=== PATIENT | female | born 1965 | race Caucasian/White ===

== ENCOUNTER 2018-10-14 11:05 | Emergency (ER) | payer MEDICARE, SELFPAY ==
[2018-10-14 11:05] VITALS: BP 105/82; PULSE 84; RESP 20; TEMP 36.8; O2SAT 94
--- NOTE | 2018-10-14 11:27 | W.ED.GENAD ---
Discharge Plan Disposition Patient Disposition: HOME Condition: Stable Discharge Details Chief Complaint: Nk/Back Pain Clinical Impression: Lumbar back pain Primary Care Provider: Mayra Bedoya ED Provider: [facility] Home Meds and New Rx's Prescriptions: New dexamethasone [Decadron] 4 mg tablet 10 mg PO ONCE Qty: 5 RF: 0 Continued carisoprodol 350 MG tablet 350 mg PO TID RF: 0 sertraline 100 MG tablet 100 mg PO DAILY RF: 0 losartan-hydrochlorothiazide 1 EACH tablet 1 tab-cap PO BID RF: 0 Narcan 4 MG spray,non-aerosol 4 mg NS ONCE Qty: 1 RF: 0 risperidone [Risperdal] 0.25 MG tablet 0.25 mg PO As directed RF: 0 gabapentin 300 MG capsule 600 mg PO QID Qty: 180 RF: 1 oxycodone 10 MG tablet 1 tab PO Q6H PRN MDD 4 tablets/day 28 Days Qty: 112 RF: 0 alprazolam 0.25 MG tablet 0.25 mg PO BID RF: 0 lamotrigine [Lamictal] 25 MG tablet 50 mg PO DAILY RF: 0 clonazepam 1 MG tablet 1 mg PO PRN PRNRF: 0 Discharge Instructions Additional Instructions: your mri lumbar showed fluid that is expected post operative and your neurosurgeon's office is going to call you for a follow up appointment call your primary care office on Wednesday and discuss having home health services Medical Decision Making 52 yo female with hx of chronic lower back pain requiring multiple surgeries and underwent l3/l4 decompression on 10/[address] Dhaliwal per pt at [facility] who comes in with increased pain since surgery and inability to walk and decreased sensation of the legs. She denies fevers, states she can't lift her legs due to weakness and has subjective loss of soft touch sensation in both legs throughout and in the saddle area. Her wound on her lower back where she had the surgery is healing well without d/c or erythema. Her pain is localized to this area, no abdominal tenderness. I spoke with data migration consultant provider for Dr. Dhaliwal at her request prior to ordering testing and Tiffanie Gimenez advised to start with MRI w and w/o and also give a dose of decadron so will order this. No abdomianl pain so doubt entities such as aaa or diverticulitis pt remains stable, does have postsurgical fluid collection on mri per dr. mendoza, awaiting neurosurgery.She is moving her legs but is weak with standing spoke with Tiffanie Gimenez again for Dr. Dhaliwal and they do not see anything on the mri they are overly concerned about and do not feel she requires any immediate interventions. I will prescribe dexemethasone at their request and also they will reach out to her on Wednesday for f/u appt Differential Diagnosis post op pain, abscess, cauda equina Medical Records Medical records reviewed: Yes I reviewed the patient's medical records. Imaging Data Radiologic Study: Attestation: I personally reviewed and interpreted this imaging study as follows: Imaging: MRI Radiologist's impression: IMPRESSION: Postsurgical fluid collection is seen in the region of the previous surgery and right laminectomy at the L3-4 level. There are no definite findings of an epidural abscess. Lab Data Lab results reviewed: Yes I reviewed the patient's lab results. HPI General Mode of arrival: EMS. Date/Time Provider Initiated Documentation: 10/14/18 11:16. Limitations to Documentation: no limitations. Information obtained by: patient. History of Present Illness 52 year old F presents to the emergency department with the chief complaint of lower back pain, described as severe, with intensity rated at 10. Quality is described as aching, and is localized to the back. Patient reports no radiation. Patient started experiencing this week(s) (1) and it has been constant. Rest improves symptom(s), Movement worsens symptoms . Patient notes no other symptoms.. Patient did receive the following treatments prior to arrival, other (oxycodone) Related Data Home Medications Medication Instructions Recorded Confirmed carisoprodol 350 mg PO TID tab-cap 09/07/16 10/14/18 losartan-hydrochlorothiazide 1 tab-cap PO BID tab-cap 09/07/16 10/14/18 sertraline 100 mg PO DAILY tab-cap 09/07/16 10/14/18 Narcan 4 mg NS ONCE #1 spray 11/03/16 10/14/18 lamotrigine [Lamictal] 50 mg PO DAILY 06/02/17 10/14/18 alprazolam 0.25 mg PO BID 07/21/17 10/14/18 risperidone [Risperdal] 0.25 mg PO As directed 08/24/17 10/14/18 gabapentin 600 mg PO QID #180 tab 10/27/17 10/14/18 oxycodone 1 tab PO Q6H PRN 28 Days #112 tab 10/27/17 10/14/18 MDD 4 tablets/day clonazepam 1 mg PO PRN PRN 11/03/17 10/14/18 dexamethasone [Decadron] 10 mg PO ONCE #5 tab 10/14/18 Previous Rx's Medication Instructions Recorded gabapentin 600 mg PO QID #180 tab 10/27/17 oxycodone 1 tab PO Q6H PRN 28 Days #112 tab 10/27/17 MDD 4 tablets/day dexamethasone [Decadron] 10 mg PO ONCE #5 tab 10/14/18 Allergies Allergy/AdvReac Type Severity Reaction Status Date / Time NSAIDS (Non-Steroidal Allergy DUE TO Unverified 10/14/18 11:09 Anti-Inflamma RENAL FAILURE General Stated Complaint: Orthopedic ADRIAN: 3 Review of Systems Review of Systems All systems reviewed & are unremarkable except as noted in HPI and below Constitutional Denies chills and Denies fever(s) Cardiovascular Denies chest pain and Denies dyspnea Respiratory Denies cough and Denies dyspnea Gastrointestinal Denies abdominal pain, Denies nausea and Denies vomiting Integumentary/Breasts Denies rash PFSH Social History Smoking/Tobacco Use Status: Current every day Alcohol Intake: never Drug use: Rarely Substance use type: does not use Do you feel safe at home: Yes Do you feel safe in your relationship?: Yes Exam Const General: no acute distress Orientation: alert HENMT Head: normal to inspection Ears: external ears normal General nose exam: external nose normal Mouth: moist mucous membranes Eyes General: appearance normal, both eyes and all related structures Neck Neck: normal visual inspection Resp Effort & Inspection: normal respiratory effort and able to speak in complete sentences Cardio Rate: regular rate Skin General skin exam: no rashes or lesions noted Neuro General: alert and oriented x3 Extrem General: normal to inspection Psych Mental Status: mental status grossly normal Course Vital Signs Temperature 36.8 C 10/14/18 11:05 Pulse 84 10/14/18 11:05 Respiratory Rate 20 10/14/18 11:05 Blood Pressure 105/82 10/14/18 11:05 Pulse Oximetry 94 L 10/14/18 11:05 Temperature 36.8 C 10/14/18 11:05 Temperature Source Temporal Artery Scan 10/14/18 11:05 Pulse 84 10/14/18 11:05 Respiratory Rate 20 10/14/18 11:05 Respiratory Effort Non-Labored 10/14/18 11:05 Blood Pressure 105/82 10/14/18 11:05 Pulse Oximetry 94 L 10/14/18 11:05 Pain Level 5 10/14/18 11:11
--- NOTE | 2018-10-14 11:33 | DI.MRI_ITS ---
SYMPTOMS/DIAGNOSIS: LOWER BACK PAIN, L3-L4 DECOMPRESSION LAST WEEK MRI OF THE LUMBAR SPINE: The patient has had recent surgery to the lumbar spine. T1, T2, STIR sagittal and T1 and T2 axial sequences, as well as fat-suppressed T1, pre and post gadolinium T1 axial and sagittal sequences were performed. The patient has had post L3-4 decompression surgery approximately one week ago. There is a right- sided laminectomy defect at this level with fluid seen extending from the skin to the level of the thecal sac. There is no apparent extension into the thecal sac. There is no enhancement to suggest infection. There is mild enhancement in the surrounding subcutaneous fat, which is mild and consistent with postsurgical appearance. A moderate degree of central canal stenosis remains present at this level. The more superior levels are unremarkable. Previous hardware is noted at L5-S1, which appears unchanged. There are prominent facet degenerative changes creating narrowing of the transverse dimension of the central canal at L4-5. This appears stable. Bilateral neural foraminal narrowing is again present at L3-4 and L4-5. This appears unchanged. IMPRESSION: Postsurgical fluid collection is seen in the region of the previous surgery and right laminectomy at the L3-4 level. There are no definite findings of an epidural abscess.
--- NOTE | 2018-10-14 11:35 | ED.GENADUL_ITS ---
Discharge Plan Disposition Patient Disposition: HOME Condition: Stable Discharge Details Chief Complaint: Nk/Back Pain Clinical Impression: Lumbar back pain Primary Care Provider: Mayra Bedoya ED Provider: [facility] Home Meds and New Rx's Prescriptions: New dexamethasone [Decadron] 4 mg tablet 10 mg PO ONCE Qty: 5 RF: 0 Continued carisoprodol 350 MG tablet 350 mg PO TID RF: 0 sertraline 100 MG tablet 100 mg PO DAILY RF: 0 losartan-hydrochlorothiazide 1 EACH tablet 1 tab-cap PO BID RF: 0 Narcan 4 MG spray,non-aerosol 4 mg NS ONCE Qty: 1 RF: 0 risperidone [Risperdal] 0.25 MG tablet 0.25 mg PO As directed RF: 0 gabapentin 300 MG capsule 600 mg PO QID Qty: 180 RF: 1 oxycodone 10 MG tablet 1 tab PO Q6H PRN MDD 4 tablets/day 28 Days Qty: 112 RF: 0 alprazolam 0.25 MG tablet 0.25 mg PO BID RF: 0 lamotrigine [Lamictal] 25 MG tablet 50 mg PO DAILY RF: 0 clonazepam 1 MG tablet 1 mg PO PRN PRNRF: 0 Discharge Instructions Additional Instructions: your mri lumbar showed fluid that is expected post operative and your neurosurgeon's office is going to call you for a follow up appointment call your primary care office on Wednesday and discuss having home health services Medical Decision Making 52 yo female with hx of chronic lower back pain requiring multiple surgeries and underwent l3/l4 decompression on 10/[address] Dhaliwal per pt at [facility] who comes in with increased pain since surgery and inability to walk and decreased sensation of the legs. She denies fevers, states she can't lift her legs due to weakness and has subjective loss of soft touch sensation in both legs throughout and in the saddle area. Her wound on her lower back where she had the surgery is healing well without d/c or erythema. Her pain is localized to this area, no abdominal tenderness. I spoke with personnel administrator provider for Dr. Dhaliwal at her request prior to ordering testing and Tiffanie Gimenez advised to start with MRI w and w/o and also give a dose of decadron so will order this. No abdomianl pain so doubt entities such as aaa or diverticulitis pt remains stable, does have postsurgical fluid collection on mri per dr. mendoza, awaiting neurosurgery.She is moving her legs but is weak with standing spoke with Tiffanie Gimenez again for Dr. Dhaliwal and they do not see anything on the mri they are overly concerned about and do not feel she requires any immediate interventions. I will prescribe dexemethasone at their request and also they will reach out to her on Wednesday for f/u appt Differential Diagnosis post op pain, abscess, cauda equina Medical Records Medical records reviewed: Yes I reviewed the patient's medical records. Imaging Data Radiologic Study: Attestation: I personally reviewed and interpreted this imaging study as follows: Imaging: MRI Radiologist's impression: IMPRESSION: Postsurgical fluid collection is seen in the region of the previous surgery and right laminectomy at the L3-4 level. There are no definite findings of an epidural abscess. Lab Data Lab results reviewed: Yes I reviewed the patient's lab results. HPI General Mode of arrival: EMS . Date/Time Provider Initiated Documentation: 10/14/18 11:16 . Limitations to Documentation: no limitations . Information obtained by: patient . History of Present Illness 52 year old F presents to the emergency department with the chief complaint of lower back pa in, described as severe, with intensity rated at 10. Quality is described as aching, and is localized to the back. Patient reports no radiation. Patient started experiencing this week(s) (1) and it has been constant. Rest improves symptom(s), Movement worsens symptoms . Patient notes no other symptoms.. Patient did receive the following treatments prior to arrival, other (oxycodone) Related Data Home Medications Medication Instructions Recorded Confirmed carisoprodol 350 mg PO TID tab-cap 09/07/16 10/14/18 losartan-hydrochlorothiazide 1 tab-cap PO BID tab-cap 09/07/16 10/14/18 sertraline 100 mg PO DAILY tab-cap 09/07/16 10/14/18 Narcan 4 mg NS ONCE #1 spray 11/03/16 10/14/18 lamotrigine [Lamictal] 50 mg PO DAILY 06/02/17 10/14/18 alprazolam 0.25 mg PO BID 07/21/17 10/14/18 risperidone [Risperdal] 0.25 mg PO As directed 08/24/17 10/14/18 gabapentin 600 mg PO QID #180 tab 10/27/17 10/14/18 oxycodone 1 tab PO Q6H PRN 28 Days #112 tab 10/27/17 10/14/18 MDD 4 tablets/day clonazepam 1 mg PO PRN PRN 11/03/17 10/14/18 dexamethasone [Decadron] 10 mg PO ONCE #5 tab 10/14/18 Previous Rx's Medication Instructions Recorded gabapentin 600 mg PO QID #180 tab 10/27/17 oxycodone 1 tab PO Q6H PRN 28 Days #112 tab 10/27/17 MDD 4 tablets/day dexamethasone [Decadron] 10 mg PO ONCE #5 tab 10/14/18 Allergies Allergy/AdvReac Type Severity Reaction Status Date / Time NSAIDS (Non-Steroidal Allergy DUE TO Unverified 10/14/18 11:09 Anti-Inflamma RENAL FAILURE General Stated Complaint: Orthopedic ADRIAN: 3 Review of Systems Review of Systems All systems reviewed & are unremarkable except as noted in HPI and below Constitutional Denies chills and Denies fever(s) Cardiovascular Denies chest pain and Denies dyspnea Respiratory Denies cough and Denies dyspnea Gastrointestinal Denies abdominal pain, Denies nausea and Denies vomiting Integumentary/Breasts Denies rash PFSH Social History Smoking/Tobacco Use Status: Current every day Alcohol Intake: never Drug use: Rarely Substance use type: does not use Do you feel safe at home: Yes Do you feel safe in your relationship?: Yes Exam Const General: no acute distress Orientation: alert HENMT Head: normal to inspection Ears: external ears normal General nose exam: external nose normal Mouth: moist mucous membranes Eyes General: appearance normal, both eyes and all related structures Neck Neck: normal visual inspection Resp Effort & Inspection: normal respiratory effort and able to speak in complete sentences Cardio Rate: regular rate Skin General skin exam: no rashes or lesions noted Neuro General: alert and oriented x3 Extrem General: normal to inspection Psych Mental Status: mental status grossly normal Course Vital Signs Temperature 36.8 C 10/14/18 11:05 Pulse 84 10/14/18 11:05 Respiratory Rate 20 10/14/18 11:05 Blood Pressure 105/82 10/14/18 11:05 Pulse Oximetry 94 L 10/14/18 11:05 Temperature 36.8 C 10/14/18 11:05 Temperature Source Temporal Artery Scan 10/14/18 11:05 Pulse 84 10/14/18 11:05 Respiratory Rate 20 10/14/18 11:05 Respiratory Effort Non-Labored 10/14/18 11:05 Blood Pressure 105/82 10/14/18 11:05 Pulse Oximetry 94 L 10/14/18 11:05 Pain Level 5 10/14/18 11:11
[2018-10-14] MEDS: Normal Saline 1,000 ML 1000 ML IV (11:39)
[2018-10-14] MEDS: Dexamethasone 10 MG/ML VIAL IVP (11:39)
[2018-10-14] MEDS: HYDROmorphone 2 MG/ML VIAL 1 MG IVP (11:39)
[2018-10-14 11:46] LABS: Abs Immature Grans 0.04 k/cumm (0.0-0.09); Absolute Basophil Count 0.01 k/cumm (0.0-0.2); Absolute Eosinophil Count 0.24 k/cumm (0.0-0.7); Absolute Lymphocyte Count 3.02 k/cumm (1.2-3.4); Absolute Monocyte Count 0.97 k/cumm (0.11-0.7); Absolute Neutrophil Count 9.72 k/cumm (1.2-6.7); Basophils % 0.1; Eosinophils % 1.7; HCT 36.8 % (36.0-46.0); HGB 11.9 g/dL (12.0-15.5); Immature Grans % 0.3; Lymphocytes % 21.6; Mean Corp. HGB Concentration 32.3 g/dL (32.0-36.0); Mean Corpuscular Hemoglobin 28.6 pg (27.0-33.0); Mean Corpuscular Volume 88.5 fL (80-95); Mean Platelet Volume 8.6 fL (8.0-11.0); Monocytes % 6.9; Neutrophils % 69.4; Platelet Count 405 x1000/uL (130-400); RBC 4.16 m/cumm (4.00-5.20); RBC Distribution Width 15.7 % (11.7-14.6)
[2018-10-14 12:16] LABS: ALT 63 U/L (12-78); AST 41 U/L (15-37); Albumin 3.4 g/dL (3.4-5.0); Alkaline Phosphatase 78 U/L (46-116); Anion Gap 10.3 mmol/L (3-11); BUN 19 mg/dL (7-18); Bilirubin, Total 0.2 mg/dL (0.2-1.0); CO2 27.7 mmol/L (21.0-32.0); CREATININE 1.14 mg/dL (0.55-1.02); Calcium 8.8 mg/dL (8.5-10.1); Chloride 96 mmol/L (98-107); Estimated GFR 49.67 (mL/min/1.73m2); Glucose 89 mg/dL (70-100); Potassium 4.3 mmol/L (3.5-5.1); Sodium 134 mmol/L (136-145); Total Protein 6.7 g/dL (6.4-8.2)
--- NOTE | 2018-10-14 14:05 | PDOC.ERCMPRO ---
Care Management Progress Note 10/14-Dr. English requested assistance with discharge plans for Venita. Venita had back surgery last week at . Met with Venita. Venita states that her doctor, Dr. Alton Bedoya, [facility], was supposed to set up home health for her and never did. Venita states she lives with her 68 year old sister who just had surgery as well. Venita states she is alone most of the time. Called home health in [place] and spoke with Kesha. Kesha stated they never received a referral from Dr. Bedoya. Called Dr. Bedoya's office and spoke with Ariadna SAHU. Ariadna states that Dr. Bedoya just saw Venita yesterday and that she has had multiple ED visits in [place]. Ariadna also states that home health was discussed in the past (for which she did not get because she was not homebound) but was not discussed for post surgery. Dr. Bedoya is not in today. Venita states that she will discuss with Dr Bedoya on Wednesday and has asked that we ask patient to call the office Wednesday morning. Above information given to Dr. English who is in agreement.
[2018-10-14] MEDS: Gadoterate meglumine 20 ML VIAL IVP (14:08)
[2018-10-14] MEDS: Ketorolac 15 MG/ML VIAL (15:43)
--- NOTE | 2018-10-14 15:47 | NUR.NOTE ---
patient medicated per MD order. patient aware of waiting for diagnostic results Nursing Note:
[2018-10-14 15:51] VITALS: BP 100/56; PULSE 75; RESP 16; TEMP 36.2; O2SAT 93
[2018-10-14] MEDS: oxyCODONE 10 MG TAB PO (17:06)
[2018-10-14 17:21] VITALS: BP 100/56; PULSE 75; RESP 16; TEMP 36.2; O2SAT 93
== END 2018-10-14 17:20 | disposition home or self-care (01) ==
PROVIDERS: Emergency Provider Emergency Medicine; PCP Family Medicine
DX: M54.5 Low back pain (principal); G89.29 Other chronic pain
CPT/HCPCS: 72158; 80053; 96361; 96374; 96375; 99284; 85025; J1100; J1885

== ENCOUNTER 2019-05-08 12:54 | Emergency (ER) | payer MEDICARE, SELFPAY ==
[2019-05-08] VITALS (13 sets, daily range): BP systolic 116–124; BP diastolic 57–77; PULSE 83–91; RESP 14–22; TEMP 36.2–36.4; O2SAT 90–100
--- NOTE | 2019-05-08 13:24 | ED.GENADUL_ITS ---
Discharge Plan Disposition Patient Disposition: HOME Condition: Fair Discharge Details Chief Complaint: CVA/TIA Clinical Impression: Mcfarland's palsy Primary Care Provider: Mayra Bedoya ED Provider: Kayla Lara Home Meds and New Rx's Prescriptions: New prednisone 20 mg tablet 60 mg PO DAILY Qty: 15 RF: 0 valacyclovir 1 gram tablet 1,000 mg PO TID Qty: 21 RF: 0 No Action carisoprodol 350 MG tablet 350 mg PO TID RF: 0 sertraline 100 MG tablet 100 mg PO DAILY RF: 0 Narcan 4 MG spray,non-aerosol 4 mg NS ONCE Qty: 1 RF: 0 alprazolam 0.25 MG tablet 0.25 mg PO BID RF: 0 lamotrigine [Lamictal] 25 MG tablet 50 mg PO DAILY RF: 0 quetiapine [Seroquel XR] 150 mg Tablet Extended Release 24 Hr 150 mg PO HS RF: 0 gabapentin 300 MG capsule 900 mg PO QID RF: 0 amlodipine 5 mg Tablet 5 mg PO DAILY AM RF: 0 fluoxetine 40 mg Capsule 40 mg PO DAILY AM RF: 0 losartan 100 mg Tablet 100 mg PO DAILY AM RF: 0 pantoprazole 40 mg Tablet,Delayed Release (Dr/Ec) 40 mg PO DAILY AM RF: 0 melatonin 10 mg Tablet 10 mg PO HS RF: 0 quetiapine 100 mg Tablet 100 mg PO HS RF: 0 Discharge Instructions Instructions: Mcfarland Palsy (ED) Additional Instructions: Push fluids by mouth. Use prednisone as prescribed. Use Valtrex as prescribed. Follow-up with your doctor within the next 5 days. Rest activities as tolerated. Use artificial tears and tape eye closed with paper tape in the evening. Use straw when drinking. Return for any worsening, concerns or alarming symptoms sooner. Discharge Data Discharge Date/Time-TO BE ENTERED AT DEPARTURE: 05/08/19 17:18 Medical Decision Making Is a 53-year-old patient who presents with a right-sided facial droop and involving the forehead. Patient did report onset of right ear pain for the last few days prior to onset of symptoms. Facial exam is consistent with Mcfarland's palsy however patient is reporting some difficulty swallowing as well as right upper arm pressure but has no focal weakness on her extremity exam. Patient is not drooling, is able to manage her secretions, has no significant voice change. Patient does lack the ability to smile on the right however her voice is otherwise unchanged. Patient is in no respiratory distress. Denies difficulty breathing. Patient is able to swallow fluids without difficulty. Patient reports onset of symptoms noted this morning when waking. Last known well was midnight. Patient's medical history includes hypertension, migraines, panic attacks, hypertension, chronic pain including neck pain as well as radicular oren nges including a foot drop on the right which is chronic. Patient also reports radiating pain into the right arm which is chronic. Patient's presentation is overall consistent with Mcfarland's palsy however given complaints of difficulty swallowing and right arm pressure I will MR her brain to be sure there is no central neurologic involvement. Patient agrees with plan of care. Labs also ordered including a Lyme. Physical exam reveals inability to range the muscles of the right side of her face including the forehead. No obvious ear canal lesions or skin changes associated. Patient has full strength in all extremities. Coordination intact. Alert and oriented x3. Patient's vital signs reviewed and normal. Patient is in no obvious distress at this time. Accompanied by sister Patient's labs revealed a very minimal leukocytosis no significant changes noted on her chemistries. Urinalysis unremarkable for identified infection. Patient's MR reveals EXAM: MR BRAIN WO CLINICAL HISTORY: facial drop, difficulty swallowing, rt arm pressure TECHNIQUE: Multiplanar multisequence MRI was performed. COMPARISON: No exams were available for comparison FINDINGS: There is mild atrophy. There are scattered high signal lesions in the white matter consistent with changes of small vessel disease. No acute infarct, hemorrhage or mass is seen. The ventricles are normal in size. Vascular flow voids appear intact. The orbits, sinuses, mastoid air cells and pituitary are unremarkable. IMPRESSION: Atrophy and white matter changes likely reflecting chronic microvascular ischemia. Findings appear somewhat disproportionate for the patient's age. No acute abnormality is seen. Case was discussed with Dr. Samira Augustin whom I have asked to also evaluate the patient. She did evaluate the patient and does feel this is most consistent with Mcfarland's palsy and has also reviewed the MRI results. 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 Patient agrees with plan of care, reports her understanding of diagnosis as well as needed for primary care involvement. The patient was stable and requested discharge. Prior to discharge, my usual and customary return precautions were reviewed with the patient - this included follow-up instructions and reasons to return to the Emergency Department if conditions worsens, does not improve as expected, or other new concerns arise. HPI General Date/Time Provider Initiated Documentation: 05/08/19 13:02 . HPI Narrative: Is a 53-year-old patient who presents for right-sided facial droop which she noted this morning. Last known well was at midnight when going to bed. Patient reports yesterday she had mild complaints of right ear pain but otherwise was feeling well. Denied fevers or chills. Patient reports she awoke this morning and started to eat breakfast noting that she was having difficulty because food was falling out of her mouth. Sister noted that she had an obvious right-sided facial droop which was asymmetric and encouraged her to come to the emergency room. Patient reports a very mild headache. Facial droop present on the right including the forehead. Difficulty closing right eye. Patient is also complaining of a pressure in the right upper arm. Patient does report difficulty swallowing. But no obvious voice change or trismus. Patient denies chest pain no difficulty breathing shortness of breath or wheezing. Patient denies obvious weakness of extremities. Patient does have a foot drop on the right which is secondary to spinal issues she has had chronically. Foot drop is unchanged. Patient denies any ill feeling at this time. Patient denies any vision change at this time. Patient denies any new neck or back pain. No other concerns or complaints. Denies any obvious tick bites recently. No history of similar. Related Data Home Medications Medication Instructions Recorded Confirmed carisoprodol 350 mg PO TID tab-cap 09/07/16 05/08/19 sertraline 100 mg PO DAILY tab-cap 09/07/16 05/08/19 Narcan 4 mg NS ONCE #1 spray 11/03/16 10/14/18 lamotrigine [Lamictal] 50 mg PO DAILY 06/02/17 05/08/19 alprazolam 0.25 mg PO BID 07/21/17 05/08/19 amlodipine 5 mg PO DAILY AM 05/08/19 05/08/19 fluoxetine 40 mg PO DAILY AM 05/08/19 05/08/19 gabapentin 900 mg PO QID 05/08/19 05/08/19 losartan 100 mg PO DAILY AM 05/08/19 05/08/19 melatonin 10 mg PO HS 05/08/19 05/08/19 pantoprazole 40 mg PO DAILY AM 05/08/19 05/08/19 prednisone 60 mg PO DAILY #15 tab 05/08/19 quetiapine 100 mg PO HS 05/08/19 05/08/19 quetiapine [Seroquel XR] 150 mg PO HS 05/08/19 05/08/19 valacyclovir 1,000 mg PO TID #21 tab 05/08/19 Previous Rx's Medication Instructions Recorded prednisone 60 mg PO DAILY #15 tab 05/08/19 valacyclovir 1,000 mg PO TID #21 tab 05/08/19 Allergies Allergy/AdvReac Type Severity Reaction Status Date / Time NSAIDS (Non-Steroidal Allergy DUE TO Unverified 05/08/19 13:10 Anti-Inflamma RENAL FAILURE General Stated Complaint: CVA/TIA ADRIAN: 2 Review of Systems All systems reviewed & are unremarkable except as noted in HPI and below Constitutional Constitutional: Denies chills, Denies fatigue, Denies fever(s), Reports headache(s), Denies malaise and Denies weakness Eyes Eyes: Denies loss of vision ENT Ears, Nose, Mouth, and Throat: Denies change in voice, Denies vertigo, Denies dizziness, Reports otalgia, Denies facial pain, Reports headache(s), Denies hoarseness, Reports neck pain (Chronic, unchanged), Denies throat swelling and Denies tongue swelling Cardiovascular Cardiovascular: Denies chest pain, Denies syncope and Denies dyspnea Respiratory Respiratory: Denies chest congestion, Denies cough, Denies pain with cough and Denies dyspnea Gastrointestinal Gastrointestinal: Denies abdominal pain, Denies diarrhea and Denies nausea Genitourinary Genitourinary: Denies dysuria Musculoskeletal Musculoskeletal: Denies abnormal gait, Denies back pain, Denies muscle weakness, Reports neck pain (Chronic, unchanged) and Denies tingling Integumentary/Breasts Skin/Breast: Denies rash Neurologic Neurologic: Denies abnormal gait, Denies behavioral changes, Denies confusion, Denies vertigo, Denies dizziness, Denies syncope, Reports headache(s), Denies lack of coordination, Denies focal weakness, Denies loss of vision, Denies tingling, Denies paresthesias and Denies weakness Psychiatric Psychiatric: Denies behavioral changes and Denies confusion Endocrine Endocrine: Denies fatigue Allergic/Immunologic Allergic/Immunologic: Denies throat swelling and Denies tongue swelling [facility] Medical History Arthritis Cervical pain Chronic pain Depression Foot drop HTN (hypertension) Kidney stones Lumbosacral pain Migraines Panic attacks Tobacco use Vitamin D deficiency Social History Smoking/Tobacco Use Status: Current every day Tobacco Type: cigarettes Alcohol Intake: never Drug use: Rarely Substance use type: marijuana Do you feel safe at home: Yes Do you feel safe in your relationship?: Yes Exam Narrative Exam Narrative: CONST: Healthy appearing patient, in no acute distress. Well hydrated. Alert and alert. HENMT: Head nomocephalic, normal to inspection. Atraumatic. Hearing grossly normal. External ear canal no erythema or swelling. TM normal bilaterally. Nose normal to inspection. No rhinnorhea. Right-sided facial droop. Oral mucosa normal. Tounge normal. Dentition normal. Normal posterior oropharynx. Uvula midline. EYES: Alignment normal. Unable to close eyelids fully on the right. Conjunctiva normal. Sclera normal. PERRL. NECK: Normal visual inspection. FROM. No lymphadenopathy. Trachea midline. No Midline tenderness. CHEST: Normal insepection of the chest. RESP: Normal respiratory effort. Speaking full sentences. No cough. No wheezing. No retractions. Clear to auscaltation. Breath sound equal and present bilaterally. CARDIO: No JVD. Normal PMI. Regular Rate. Regular Rhythm. Normal peripheral pulses. GI: Normal inspection of abdomen. No distension. Soft. Nontender. Bowel sounds present in all 4 quadrants. No rebound. No gaurding. MUSCULOSKELETAL: Normal Gait. FROM of all extremities. Distal neurovascularly intact. Sensation intact distally. SKIN: Normal. Dry. No rashes. NEURO: Alert and awake. Speech clear. Alert and oriented x 3. Speech is clear. Patient unable to fully close right eye, unable to raise brow on the right, unable to smile on right. Normal [id number]-[id number] test. No pronator drift. Normal heel-gallegos test. No Nystagmus. Gait normal. Strength intact in all extremities. Sensation intact in all extremities. PSYCH: Normal affect. Cooperative. Course Vital Signs Vital signs: Vital Signs Temperature 36.2 C L 05/08/19 13:06 Pulse 90 05/08/19 13:06 Respiratory Rate 14 05/08/19 13:06 Blood Pressure 124/57 L 05/08/19 13:06 Pulse Oximetry 100 05/08/19 13:06 Temperature 36.2 C L 05/08/19 13:06 Temperature Source Skin 05/08/19 13:06 Pulse 90 05/08/19 13:06 Respiratory Rate 14 05/08/19 13:06 Blood Pressure 124/57 L 05/08/19 13:06 Blood Pressure Position Sitting 05/08/19 13:06 Pulse Oximetry 100 05/08/19 13:06 Oxygen Delivery Method Room Air 05/08/19 13:06 Oxygen Flow Rate 0 05/08/19 13:06
[2019-05-08 13:55] LABS: Abs Immature Grans 0.03 k/cumm (0.0-0.09); Absolute Basophil Count 0.03 k/cumm (0.0-0.2); Absolute Eosinophil Count 0.38 k/cumm (0.0-0.7); Absolute Lymphocyte Count 2.89 k/cumm (1.2-3.4); Absolute Monocyte Count 0.58 k/cumm (0.11-0.7); Absolute Neutrophil Count 6.95 k/cumm (1.2-6.7); Basophils % 0.3; Eosinophils % 3.5; HCT 40.1 % (36.0-46.0); HGB 12.9 g/dL (12.0-15.5); Immature Grans % 0.3; Lymphocytes % 26.6; Mean Corp. HGB Concentration 32.2 g/dL (32.0-36.0); Mean Corpuscular Hemoglobin 27.4 pg (27.0-33.0); Mean Corpuscular Volume 85.1 fL (80-95); Mean Platelet Volume 8.9 fL (8.0-11.0); Monocytes % 5.3; Platelet Count 393 x1000/uL (130-400); RBC 4.71 m/cumm (4.00-5.20); RBC Distribution Width 14.9 % (11.7-14.6); White Blood Cell Count 10.86 k/cumm (4.4-10.8)
[2019-05-08 14:03] LABS: ALT 24 U/L (14-59); AST 12 U/L (15-37); Albumin 3.7 g/dL (3.4-5.0); Alkaline Phosphatase 69 U/L (46-116); Anion Gap 10.4 mmol/L (3-11); BUN 26 mg/dL (7-18); Bilirubin, Total 0.2 mg/dL (0.2-1.0); CO2 27.6 mmol/L (21.0-32.0); CREATININE 0.93 mg/dL (0.55-1.02); Calcium 9.2 mg/dL (8.5-10.1); Chloride 102 mmol/L (98-107); Glucose 97 mg/dL (74-106); Potassium 3.4 mmol/L (3.5-5.1); Sodium 140 mmol/L (136-145); Total Protein 7.5 g/dL (6.4-8.2)
[2019-05-08] MEDS: Normal Saline 1,000 ML 1000 ML IV (14:05)
[2019-05-08 15:00] LABS: Bilirubin Negative (Negative); Blood Negative (Negative); Clarity Clear (Clear); Glucose Negative (Negative); Ketones Negative (Negative); Leukocyte Esterase Negative (Negative); Nitrite Negative (Negative); Urobilinogen 0.2 EU/dL (Up TO 0.2)
--- NOTE | 2019-05-08 15:42 | DI.MRI_ITS ---
EXAM: MR BRAIN WO CLINICAL HISTORY: facial drop, difficulty swallowing, rt arm pressure TECHNIQUE: Multiplanar multisequence MRI was performed. COMPARISON: No exams were available for comparison FINDINGS: There is mild atrophy. There are scattered high signal lesions in the white matter consistent with c hanges of small vessel disease. No acute infarct, hemorrhage or mass is seen. The ventricles are no rmal in size. Vascular flow voids appear intact. The orbits, sinuses, mastoid air cells and pituita ry are unremarkable. IMPRESSION: Atrophy and white matter changes likely reflecting chronic microvascular ischemia. Findings appear s omewhat disproportionate for the patient's age. No acute abnormality is seen.
[2019-05-09 13:18] LABS: Lyme Ab w Rflx to Lyme Confirm Negative (Negative)
[2019-05-09 21:31] LABS: Anaplasma phagocytophilum Negative (Negative); B. miyamotoi PCR Negative (Negative); Babesia divergens/MO-1 Negative (Negative); Babesia duncani Negative (Negative); Babesia microti Negative (Negative); Ehrlichia chaffeensis Negative (Negative); Ehrlichia ewingii/canis Negative (Negative); Ehrlichia muris eauclairensis Negative (Negative)
== END 2019-05-08 17:18 | disposition home or self-care (01) ==
PROVIDERS: Emergency Provider Physician Assistant; PCP Family Medicine
DX: G51.0 Bell's palsy (principal); R13.10 Dysphagia, unspecified; R47.81 Slurred speech; R53.1 Weakness; I10 Essential (primary) hypertension; H92.01 Otalgia, right ear
CPT/HCPCS: 36415; 80053; 87798; 93005; 96360; 99285; 70551; 81003; 85025; 86618; 93010

== ENCOUNTER 2020-03-10 08:14 | Emergency (ER) | payer MEDICARE, SELFPAY ==
[2020-03-10 08:16] VITALS: BP 121/104; PULSE 74; TEMP 36.5; O2SAT 96
--- NOTE | 2020-03-10 08:30 | DI.RAD_ITS ---
EXAM: XR LUMBAR SPINE COMPLETE CLINICAL HISTORY: Left side radiculopathy, hx of spine surgery. TECHNIQUE: 2D digital imaging was performed. COMPARISON: No exams were available for comparison FINDINGS: There are 5 lumbar type vertebral bodies. Posterior spinal fusion is seen at L5-S1 with a L5 discect wally. The orthopedic hardware appears intact. Moderate degenerative changes are seen in the lumbar s pine particularly at L3-4 and L4-L5. No acute fracture or dislocation. The bones are normally patents examiner alized. IMPRESSION: 1. Stable postsurgical changes in the lower lumbar spine. 2. Degenerative changes in the lumbar spine. 3. No acute abnormality. DATA REPOSITORY: RADIATION DOSE DELIVERED:
--- NOTE | 2020-03-10 08:37 | W.ED.GENAD ---
Discharge Plan Disposition Patient Disposition: HOME Condition: Stable Discharge Details Clinical Impression: UTI (urinary tract infection), Sciatica of left side Primary Care Provider: Mayra Bedoya ED Provider: Renetta Martínez Home Meds and New Rx's Prescriptions: New cephalexin 500 mg tablet 500 mg PO BID 7 Days Qty: 14 RF: 0 oxycodone-acetaminophen [Percocet] 5-325 mg tablet 1 tab PO TID PRN (Reason: pain) Qty: 6 RF: 0 Continued carisoprodol 350 MG tablet 350 mg PO TID RF: 0 Narcan 4 MG spray,non-aerosol 4 mg NS ONCE Qty: 1 RF: 0 alprazolam 0.25 MG tablet 0.25 mg PO BID RF: 0 hydrochlorothiazide 25 mg tablet 25 mg PO DAILY RF: 0 amitriptyline 100 mg tablet 100 mg PO QHS RF: 0 quetiapine [Seroquel XR] 150 mg Tablet Extended Release 24 Hr 150 mg PO HS RF: 0 gabapentin 300 MG capsule 800 mg PO QID RF: 0 amlodipine 5 mg Tablet 5 mg PO DAILY AM RF: 0 fluoxetine 40 mg Capsule 40 mg PO DAILY AM RF: 0 losartan 100 mg Tablet 100 mg PO DAILY AM RF: 0 pantoprazole 40 mg Tablet,Delayed Release (Dr/Ec) 40 mg PO DAILY AM RF: 0 melatonin 10 mg Tablet 10 mg PO HS RF: 0 quetiapine 100 mg Tablet 100 mg PO HS RF: 0 prednisone 20 mg tablet 60 mg PO DAILY Qty: 15 RF: 0 Discharge Instructions Instructions: Urinary Tract Infection in Women (ED), Sciatica (ED) Additional Instructions: Follow up with primary care provider in 3-5 days. Return to ED sooner if any worsening or concerns. Increase oral fluids. Please take Tylenol with food every 4-6 hours as needed for pain and swelling. Try alternating ice and heat, take medications as prescribed. Referrals: Mayra Bedoya [Primary Care Provider] - Discharge Data Discharge Date/Time-TO BE ENTERED AT DEPARTURE: 03/10/20 09:46 Medical Decision Making 54-year-old female presents to the ED with chief complaint of left lower lumbar pain with radiation down her left leg to her knee. She does have a complex history of back problems including back surgery, she had a lumbar fusion in 1998, laminectomy lumbar surgery also at that time. She reports that the pain and numbness has caused her to have increased frequent falls. Last fall was approximately 5 days ago. She has arthritis, chronic pain, depression foot drop on the right, hypertension. She reports she had a nerve block at [facility] approximately a week ago which made the pain worse in her left side. She denies any saddle anesthesia no loss of bowel or bladder control. She does report some numbness to the bottom of her feet bilaterally. She reports noting some darkening of her urine. She denies any chest pain, abdominal pain, fever or any other associated symptoms. Urinalysis shows trace blood, small leukocytes, 20-50 WBCs, no nitrates culture is pending at this time. Patient was given Valium 2 mg, a and 1 Percocet in the department. Imaging protocol: XR of the lumbosacral spine, 4 or 5 views. COMPARISON: MR L-SPINE^ROUTINE W WO 10/14/2018 1:47 PM FINDINGS: Vertebrae: Postsurgical changes are present. The patient has undergone L5 laminectomy and discectomy with posterior fusion. Pedicle screws and rods and intervertebral disc prostheses are at the L5-S1 level. DJD is present with disc space narrowing sclerosis and osteophyte formation at the L3-L4 and L4-L5 levels.. There is no significant malalignment. No fracture or other acute abnormalities are seen. Soft tissues: Unremarkable. IMPRESSION: 1. Postsurgical changes at L5-S1. 2. DJD. 3. No acute abnormality. Thank you for allowing us to participate in the care of your patient. Dictated and Authenticated by: Abel Gonsales MD 03/10/2020 9:14 AM Eastern Time ([place] & [place]) We will treat patient for UTI, will give Percocet prescription to go instructed to follow-up with PCP, verbalized understanding discuss strict return instructions, verbalized understanding. HPI General Mode of arrival: EMS. Date/Time Provider Initiated Documentation: 03/10/20 08:17. Limitations to Documentation: no limitations. Information obtained by: patient. HPI Narrative: 54-year-old female presents to the ED with chief complaint of left lower lumbar pain with radiation down her left leg to her knee. She does have a complex history of back problems including back surgery, she had a lumbar fusion in 1998, laminectomy lumbar surgery also at that time. She reports that the pain and numbness has caused her to have increased frequent falls. Last fall was approximately 5 days ago. She has arthritis, chronic pain, depression foot drop on the right, hypertension. She reports she had a nerve block at [facility] approximately a week ago which made the pain worse in her left side. She denies any saddle anesthesia no loss of bowel or bladder control. She does report some numbness to the bottom of her feet bilaterally. She reports noting some darkening of her urine. She denies any chest pain, abdominal pain, fever or any other associated symptoms. Related Data Home Medications Medication Instructions Recorded Confirmed carisoprodol 350 mg PO TID tab-cap 09/07/16 03/10/20 Narcan 4 mg NS ONCE #1 spray 11/03/16 10/14/18 alprazolam 0.25 mg PO BID 07/21/17 03/10/20 amlodipine 5 mg PO DAILY AM 05/08/19 03/10/20 fluoxetine 40 mg PO DAILY AM 05/08/19 03/10/20 gabapentin 800 mg PO QID 05/08/19 03/10/20 losartan 100 mg PO DAILY AM 05/08/19 03/10/20 melatonin 10 mg PO HS 05/08/19 03/10/20 pantoprazole 40 mg PO DAILY AM 05/08/19 03/10/20 prednisone 60 mg PO DAILY #15 tab 05/08/19 03/10/20 quetiapine 100 mg PO HS 05/08/19 03/10/20 quetiapine [Seroquel XR] 150 mg PO HS 05/08/19 03/10/20 amitriptyline 100 mg PO QHS 03/10/20 03/10/20 cephalexin 500 mg PO BID 7 Days #14 tab 03/10/20 hydrochlorothiazide 25 mg PO DAILY 03/10/20 03/10/20 oxycodone-acetaminophen [Percocet] 1 tab PO TID PRN #6 tab 03/10/20 Previous Rx's Medication Instructions Recorded prednisone 60 mg PO DAILY #15 tab 05/08/19 cephalexin 500 mg PO BID 7 Days #14 tab 03/10/20 oxycodone-acetaminophen [Percocet] 1 tab PO TID PRN #6 tab 03/10/20 Allergies Allergy/AdvReac Type Severity Reaction Status Date / Time NSAIDS (Non-Steroidal Allergy DUE TO Unverified 03/10/20 08:21 Anti-Inflamma RENAL FAILURE General Stated Complaint: Nk/Back Pain ADRIAN: 3 Review of Systems Narrative: Constitutional: Negative for weight loss, alert and oriented, well groomed, normal body habitus, appears comfortable. Reports frequent falls. HEENT: Denies headaches, blurry vision, nasal discharge, sore throat, trouble swallowing. Chest: Denies chest pain, palpitations, irregular rhythm, hypertension. Respiratory: Denies Shortness of breath, cough, hemoptysis. GI: Denies abdominal pain, nausea, vomiting, diarrhea, constipation. Musculoskeletal: Left lower lumbar paraspinous tenderness with radiation around the left gluteal to left anterior thigh. : Denies dysuria, hematuria, flank pain, rectal bleeding. Neuro: Denies dizziness, blurry vision, syncope, headache or facial numbness. Hematologic: Denies easy bruising, intolerance to heat or cold, hair loss. [facility] Medical History Arthritis Cervical pain Chronic pain Depression Foot drop HTN (hypertension) Kidney stones Lumbosacral pain Migraines Panic attacks Tobacco use Vitamin D deficiency Surgical History ANTERIOR LUMBAR INTERBODY FUSION (~1998) Cervical Procedure (~1998) HX CERVICAL CA HEMILAMINECTOMY LUMBAR SURGERY (~1998) MICRODISCECTOMY (~1996) Oophrectomy, Right Social History Smoking/Tobacco Use Status: Current every day Tobacco Type: cigarettes Alcohol Intake: never Drug use: Rarely Substance use type: marijuana Do you feel safe at home: Yes Do you feel safe in your relationship?: Yes Exam Narrative Exam Narrative: Constitutional: Alert and oriented x3. Appears stated age. Normal body habitus. Head: Normocephalic, no trauma. Eyes: Pupils PERRLA, Red reflex noted, EOM's intact. Eyelids symmetrical without lesions, discharge, or swelling. ENT: Bilateral TM's WNL, External ear normal to inspection, no mastoid TTP, swelling, or erythema, Nasal turbinates WNL, no nasal discharge. Normal dentition, Posterior pharynx WNL, no exudate. Chest: RRR, Normal S1, S2, distal pulses intact. Resp: Lungs clear to auscultation bilaterally, no wheezes, rales, or rhonchi. Musculoskeletal: Unable to assess gait, does have chronic right foot drop, has intact dorsal pedal flexion and extension to the left lower extremity decreased on the right. Skin: No suspicious rashes or lesions. Capillary refill less than 2 sec. Neurologic: Cranial nerves II-XII intact. Alert and oriented x 3. DTR's intact. Hematologic/Lymphatic: No ecchymosis, no lymphadenopathy. Course Vital Signs Vital signs: Vital Signs Temperature 36.5 C 03/10/20 08:16 Pulse 74 03/10/20 08:16 Blood Pressure 121/104 H 03/10/20 08:16 Pulse Oximetry 96 03/10/20 08:16 Temperature 36.5 C 03/10/20 08:16 Temperature Source Temporal Artery Scan 03/10/20 08:16 Pulse 74 03/10/20 08:16 Respiratory Effort Non-Labored 03/10/20 08:28 Blood Pressure 121/104 H 03/10/20 08:16 Blood Pressure Position Sitting 03/10/20 08:16 Pulse Oximetry 96 03/10/20 08:16 Oxygen Delivery Method Room Air 03/10/20 08:16 Oxygen Flow Rate 0 03/10/20 08:16 Pain Level 6 03/10/20 08:16
[2020-03-10] MEDS: diazePAM 2 MG TAB PO (08:46)
[2020-03-10] MEDS: traMADol 50 MG TAB PO (08:47)
[2020-03-10 08:48] LABS: Bilirubin Negative (Negative); Blood Trace-intact (Negative); Clarity Clear (Clear); Glucose Negative (Negative); Ketones Negative (Negative); Leukocyte Esterase Small (Negative); Nitrite Negative (Negative); Urobilinogen 0.2 EU/dL (Up TO 0.2)
[2020-03-10 08:59] LABS: Bacteria Many HPF (Negative); Casts Negative LPF (Negative); Crystals Negative HPF (Negative); Epithelial Cells Rare HPF (Negative); Mucus Negative (Negative); WBC 20-50 HPF (0-5)
[2020-03-10 09:00] LABS: C & S Indicated? Yes
[2020-03-10 09:11] VITALS: BP 114/63; PULSE 72; RESP 20; TEMP 36.6; O2SAT 93
[2020-03-10] MEDS: oxyCODONE 5 mg/Acetaminophen 325 mg TAB 1 TAB PO (09:40)
[2020-03-10] MEDS: Cephalexin 500 MG CAP PO (09:40)
--- NOTE | 2020-03-14 16:03 | DI.VRAD_ITS ---
PROCEDURE INFORMATION: Exam: XR Lumbosacral Spine, 4 or 5 Views Exam date and time: 03/10/2020 8:59 AM Age: 54 years old Clinical indication: Low back pain; Prior surgery; Surgery type: Fusion; Patient HX: Left sided radiculopathy, HX of spine surgery TECHNIQUE: Imaging protocol: XR of the lumbosacral spine, 4 or 5 views. COMPARISON: MR L-SPINE^ROUTINE W WO 10/14/2018 1:47 PM FINDINGS: Vertebrae: Postsurgical changes are present. The patient has undergone L5 laminectomy and discectomy with posterior fusion. Pedicle screws and rods and intervertebral disc prostheses are at the L5-S1 level. DJD is present with disc space narrowing sclerosis and osteophyte formation at the L3-L4 and L4-L5 levels.. There is no significant malalignment. No fracture or other acute abnormalities are seen. Soft tissues: Unremarkable. IMPRESSION: 1. Postsurgical changes at L5-S1. 2. DJD. 3. No acute abnormality. Dictated and Authenticated by: Abel Gonsales MD. Ordering:ALEXANDRA Jackson MD
== END 2020-03-10 09:46 | disposition home or self-care (01) ==
PROVIDERS: Emergency Provider Registered Nurse Emergency; PCP Family Medicine
DX: N39.0 Urinary tract infection, site not specified (principal); B96.20 Unspecified Escherichia coli [E. coli] as the cause of diseases classified elsewhere; M54.32 Sciatica, left side; I10 Essential (primary) hypertension
CPT/HCPCS: 87077; 99283; 72110; 81003; 81015; 87086; 87186

== ENCOUNTER 2020-07-19 16:28 | Emergency (ER) | payer MEDICARE, SELFPAY ==
[2020-07-19 16:30] VITALS: BP 170/112; PULSE 92; RESP 20; TEMP 36.9; O2SAT 95
--- NOTE | 2020-07-19 17:12 | W.ED.GENAD ---
Discharge Plan Disposition Patient Disposition: [facility] Condition: Serious Discharge Details Clinical Impression: Low back pain, Incontinence Primary Care Provider: Mayra Bedoya ED Provider: Adiel Membreno Home Meds and New Rx's Prescriptions: No Action Narcan 4 MG spray,non-aerosol 4 mg NS ONCE Qty: 1 RF: 0 hydrochlorothiazide 25 mg tablet 25 mg PO DAILY RF: 0 amitriptyline 100 mg tablet 100 mg PO QHS RF: 0 carisoprodol 350 mg tablet 350 mg PO TID PRNRF: 0 prednisone 5 mg tablet 15 mg PO DAILY RF: 0 gabapentin 800 mg tablet 800 mg PO QID RF: 0 alprazolam 0.5 mg tablet 0.5 mg PO TID RF: 0 pantoprazole 40 mg tablet,delayed release (DR/EC) 40 mg PO DAILY RF: 0 propranolol 20 mg tablet 20 mg PO DAILY RF: 0 quetiapine [Seroquel XR] 150 mg Tablet Extended Release 24 Hr 150 mg PO HS RF: 0 amlodipine 5 mg Tablet 5 mg PO DAILY AM RF: 0 fluoxetine 40 mg Capsule 40 mg PO DAILY AM RF: 0 losartan 100 mg Tablet 100 mg PO DAILY AM RF: 0 melatonin 10 mg Tablet 10 mg PO HS RF: 0 Discharge Data Discharge Date/Time-TO BE ENTERED AT DEPARTURE: 07/19/20 20:15 Medical Decision Making 1715 -- 54-year-old female with history of multiple spinal surgeries including lumbar fusion 1998, laminectomy, presents to the left lower lumbar pain with radiation down her left leg to her knee with associated paresthesia, frequent falls over the past 2 days and also urinary incontinence over the past few days. Patient is hypertensive and intermittently having spasms of her left leg. Patient has decreased sensation to light touch left inner thigh. Consider cauda equina syndrome. MRI capability not available at this time at [facility]. Call to [facility] [place] transfer center to request transfer. Will obtain CT lspine to assess for fx given fall. -- I spoke with ortho data power consultant at [facility] [place] - he requested Dixon reflex be performed. 1857 -- CT performed. Dilaudid 1mg given and patient reassessed and pain improved. Still having intermittent spasms. Rectal exam performed and able to bear down but resting tone seems weak. Patient notes diminished sensation L>R perineum. Exam performed with female integration software engineer present. -- Discussed results and findings with [facility] [place] [place] orth data power consultant and Dr. Weathers in ED, Dr. Weathers to accept patient in transfer. 2040 -- Transfer delayed as patient considering transfer. --Patient consented to transfer. HPI General Mode of arrival: ambulatory. Date/Time Provider Initiated Documentation: 07/19/20 16:35. Limitations to Documentation: no limitations. Information obtained by: patient. HPI Narrative: 54-year-old female with history of multiple prior back surgeries, chronic back pain, here with worsening pain over the past 2-week, now with paresthesias, weakness with her leg giving out with frequent falls and spasms as well as associated urinary incontinence over the past few days intermittently. Spasms are severe. She has been taking her antispasmodics without relief. No associated fever. No recent trauma. Patient has had 5 fall from standing to the ground in the past 1 week. Related Data Home Medications Medication Instructions Recorded Confirmed Narcan 4 mg NS ONCE #1 spray 11/03/16 07/19/20 amlodipine 5 mg PO DAILY AM 05/08/19 07/19/20 fluoxetine 40 mg PO DAILY AM 05/08/19 07/19/20 losartan 100 mg PO DAILY AM 05/08/19 07/19/20 melatonin 10 mg PO HS 05/08/19 07/19/20 quetiapine [Seroquel XR] 150 mg PO HS 05/08/19 07/19/20 amitriptyline 100 mg PO QHS 03/10/20 07/19/20 hydrochlorothiazide 25 mg PO DAILY 03/10/20 07/19/20 alprazolam 0.5 mg PO TID 07/19/20 07/19/20 carisoprodol 350 mg PO TID PRN 07/19/20 07/19/20 gabapentin 800 mg PO QID 07/19/20 07/19/20 pantoprazole 40 mg PO DAILY 07/19/20 07/19/20 prednisone 15 mg PO DAILY 07/19/20 07/19/20 propranolol 20 mg PO DAILY 07/19/20 07/19/20 Allergies Allergy/AdvReac Type Severity Reaction Status Date / Time NSAIDS (Non-Steroidal Allergy DUE TO Unverified 07/19/20 16:34 Anti-Inflamma RENAL FAILURE General Stated Complaint: Nk/Back Pain ADRIAN: 3 Review of Systems All systems reviewed & are unremarkable except as noted in HPI and below Constitutional Constitutional: Denies fever(s) Musculoskeletal Musculoskeletal: Reports as per HPI and Reports back pain PFSH Medical History Arthritis Cervical pain Chronic pain Depression Foot drop HTN (hypertension) Kidney stones Lumbosacral pain Migraines Panic attacks Tobacco use Vitamin D deficiency Surgical History ANTERIOR LUMBAR INTERBODY FUSION (~1998) Cervical Procedure (~1998) HX CERVICAL CA HEMILAMINECTOMY LUMBAR SURGERY (~1998) MICRODISCECTOMY (~1996) Oophrectomy, Right Social History Smoking/Tobacco Use Status: Current every day Tobacco Type: cigarettes Smoking risk assessment performed?: Yes Alcohol Intake: never Drug use: Rarely Substance use type: marijuana Do you feel safe at home: Yes Do you feel safe in your relationship?: Yes Exam Const General: cooperative Orientation: alert and awake [facility] Head: normocephalic and atraumatic Mouth: moist mucous membranes Eyes Conjunctivae: normal conjunctivae Sclera: normal sclerae Resp Auscultation: clear to auscultation bilaterally, no rales, no rhonchi and no wheezes Cardio Rate: regular rate and not tachycardic Rhythm: regular rhythm GI Palpation: soft, not firm, no guarding, no masses, not rigid and nontender Back/Spine/Pelvis Back: No erythema and No ecchymosis Thoracic/Lumbar Spine: paraspinal tenderness (left), No thoracic spinal tenderness and lumbar spinal tenderness Skin General skin exam: no rashes or lesions noted Neuro General: patient alert, patient awake, patient oriented x3 and tone normal Cognition: normal cognition Speech: speech normal Motor: other (Weakness left lower extremity, patient has to lift her leg onto the stretch) Sensory Exam: other (Some diminished sensation to light touch left inner thigh) Extrem General: no edema Psych Appearance: grossly normal Mental Status: mental status grossly normal Course Vital Signs Vital signs: Vital Signs Temperature 36.9 C 07/19/20 16:30 Pulse 92 H 07/19/20 16:30 Respiratory Rate 20 07/19/20 16:30 Blood Pressure 170/112 H 07/19/20 16:30 Pulse Oximetry 95 07/19/20 16:30 Temperature 36.9 C 07/19/20 16:30 Temperature Source Skin 07/19/20 16:30 Pulse 92 H 07/19/20 16:30 Respiratory Rate 20 07/19/20 16:30 Respiratory Effort Non-Labored 07/19/20 16:34 Blood Pressure 170/112 H 07/19/20 16:30 Blood Pressure Position Sitting 07/19/20 16:30 Pulse Oximetry 95 07/19/20 16:30 Oxygen Delivery Method Room Air 07/19/20 16:30 Oxygen Flow Rate 0 07/19/20 16:30 Pain Level 8 07/19/20 16:30
--- NOTE | 2020-07-19 17:15 | DI.CT_ITS ---
EXAM: CT LUMBAR SPINE WO CLINICAL HISTORY: low back pain, left sciatic, paresthesia. TECHNIQUE: Imaging Protocol: Axial computed tomography images with coronal and sagittal reformatted images were created and reviewed COMPARISON: CR CERV SP.WITH OBL OR FLEX/EXT from 09/17/2016 CR CERV SP.WITH OBL OR FLEX/EXT from 09/17/2016 MR MRI - LUMBAR SPINE W/WO CONT from 11/12/2016 CR,XR XR LUMBAR SPINE COMPLETE from 03/10/2020 MRI October 2016 was reviewed FINDINGS: Bones: There is evidence of previous fusion surgery at L5-S1 level with posterior fusion rods and davian ateral intrapedicular screws at L5 and S1 levels and are also 2 adjacent right of center disc space d evices at L5-S1 level. INDIVIDUAL LEVELS: T12-L1:No disc herniation nor canal stenosis. Facet joints unremarkable. No foraminal stenosis. L1-2: No disc herniation nor canal stenosis. Facet joints unremarkable. No foraminal stenosis. L2-3: No disc herniation nor canal stenosis. Facet joints unremarkable. No significant foraminal s tenosis. L3-4: Relatively preserved disc height but abundant vacuum phenomenon within the disc space noted an d mild retrolisthesis of L3 relative to L4. There is moderate-severe spinal canal stenosis at this l evel due to annular bulging and short AP dimensions the pedicles. There is also significant bilatera l foraminal stenosis at this level. There appears to be a lateral left disc herniation which is late ral to the exiting left neural foramen and indenting the medial aspect of the left psoas muscle. There is also abnormal widening of both facet joints at this level without vacuum phenomenon evident within these facet joints. L4-5: This is 1 level above the fusion. There is advanced narrowing of the right side of this disc space and moderate narrowing of the left side of the disc space. The pedicular screws are immediatel y subjacent to the superior endplate of L4 but do not appear to project into the intervertebral disc space at this level. There has been removal of posterior osseous elements at this level/bilateral la minectomies. Is not possible to truly determine if there is a disc protrusion at this level due to t he artifact from the screws. There is moderate central spinal canal stenosis at this level. There i s mild foraminal stenosis due to a combination of disc height loss plus severe degenerative change in the facet joints at this level. L5-S1: This disc space contains 2 parallel intervertebral disc space devices which are mostly to the right of center. There does appear to be an element of fusion at this level. The intra pedicular s crews appear to be in satisfactory position. There has been removal of posterior osseous elements. Canal dimensions are within normal limits and there does not appear to be foraminal stenosis at this level due to height maintenance of the disc space by the fusion and disc space devices. There is fus ion across the facets at this level. No obvious disc material in the epidural space at this level. No abnormal fluid collection. S1-S2: There do not appear to be significant findings at this level nor foraminal stenosis. No significant findings in the sacral canal. PARASPINAL SOFT TISSUES: Visualized paraspinal tissues appear unremarkable. IMPRESSION: 1. Postsurgical changes-fusion at L5 S1 level as described above. 2. Significant findings at level (1 level above the fusion) as well as at L3-4 level as described abo ve. 3. There is also abnormal widening of the facet joint synovial spaces at L3-4 level which was not xenia dent on the prior MRI study of October 2016 and is not associated with vacuum phenomenon/gas within the joint space is (as is evident within the L3-4 disc space on today's study). Recommend follow-up MRI. Although there may be some artifact I feel that MRI would add significant i nformation here. RADIATION DOSE DELIVERED: 1,559.65mGy.cm Total DLP DATA REPOSITORY: All CT scans at this facility are submitted to the National Radiology Data Registry (NRDR) Dose Index Registry (DIR) with the [employer] (ACR). RADIATION OPTIMIZATION: All CT scans at this facility use at least one of these dose optimization te chniques: automated exposure control; mA and/or kV adjustment per patient size (includes targeted exa ms where dose is matched to clinical indication); or iterative reconstruction.
[2020-07-19] MEDS: Normal Saline Flush 10 ML SYR IVP (17:50)
[2020-07-19] MEDS: HYDROmorphone 2 MG/ML VIAL 1 MG IVP (17:56)
[2020-07-19 18:06] LABS: Abs Immature Grans 0.04 10^3/uL (0.0-0.06); Absolute Basophil Count 0.05 10^3/uL (0.0-0.2); Absolute Eosinophil Count 0.09 10^3/uL (0.0-0.7); Absolute Monocyte Count 0.49 10^3/uL (0.1-0.8); Absolute Neutrophil Count 9.34 10^3/uL (1.2-6.7); Basophils % 0.4; Eosinophils % 0.8; HCT 41.3 % (36.0-46.0); HGB 13.3 g/dL (11.2-15.7); Immature Grans % 0.3; Lymphocytes % 13.9; MCHC 32.2 % (32.0-36.0); MCV 86.9 fL (80-95); MPV 8.7 fL (8.0-11.0); Monocytes % 4.2; Neutrophils % 80.4; Nucleated RBC 0 %; Platelet Count 506 10^3/uL (130-400); RBC 4.75 10^6/uL (3.93-5.22); RDW 14.6 % (11.7-14.6); RDW-SD 47.1 fL; WBC 11.62 10^3/uL (4.4-10.8)
[2020-07-19 18:13] LABS: Absolute Lymphocyte Count 1.62 10^3/uL (1.2-3.4)
[2020-07-19 18:29] LABS: ALT 38 U/L (14-59); AST 16 U/L (15-37); Albumin 3.9 g/dL (3.4-5.0); Alkaline Phosphatase 87 U/L (46-116); BUN 14 mg/dL (7-18); Bilirubin, Total 0.2 mg/dL (0.2-1.0); CREATININE 0.9 mg/dL (0.55-1.02); Calcium 9.8 mg/dL (8.5-10.1); Chloride 105 mmol/L (98-107); Glucose 108 mg/dL (74-106); Potassium 4.3 mmol/L (3.5-5.1); Sodium 143 mmol/L (136-145)
[2020-07-19] MEDS: Lidocaine 5% Patch 1 PATCH (18:50)
[2020-07-19 19:35] VITALS: BP 143/80; PULSE 86; RESP 18; TEMP 36.6; O2SAT 95
--- NOTE | 2020-07-19 19:42 | DI.VRAD_ITS ---
PROCEDURE INFORMATION: Exam: CT Lumbar Spine Without Contrast Exam date and time: 07/19/2020 5:21 PM Age: 54 years old Clinical indication: Low back pain TECHNIQUE: Imaging protocol: Computed tomography images of the lumbar spine without contrast. Radiation optimization: All CT scans at this facility use at least one of these dose optimization techniques: automated exposure control; mA and/or kV adjustment per patient size (includes targeted exams where dose is matched to clinical indication); or iterative reconstruction. COMPARISON: MR L-SPINE^ROUTINE W WO 14/10/2018 13:47 FINDINGS: Vertebrae: Stable postsurgical changes of the lower lumbar spine with bilateral pedicle screws and Dunn rods in place at L5-S1. Disc spacer in place at L5-S1. L1-L2: No disc herniation. No spinal stenosis. No neural foraminal narrowing. L2-L3: No disc herniation. No spinal stenosis. No neural foraminal narrowing. L3-L4: Vacuum disc phenomena. Slight retrolisthesis of L3 on L4. The spinal canal and neural foramina are patent. Facet arthropathy. Inferior right facet defect seen best on the sagittal images series 7, image 56. L4-L5: Advanced degenerative changes. Disc space narrowing. Anterior bridging osteophytes. Facet arthropathy. Bilateral neural foraminal stenosis. L5 laminectomy. Pedicle screws at L5 bilaterally. L5-S1: Pedicle screws at L5 and S1 bilaterally with Dunn rods. L5 laminectomy. Advanced facet arthropathy. The neural foramina and spinal canal are patent. Soft tissues: Unremarkable. IMPRESSION: Postsurgical changes of the lower lumbar spine similar to prior study. Advanced degenerative changes at L3-L4 and L4-L5. Dictated and Authenticated by: Maru Chance MD. Ordering:TIMMY Chun MD
[2020-07-19 20:39] VITALS: BP 147/95; PULSE 85; RESP 20; TEMP 36.6; O2SAT 94
== END 2020-07-19 20:15 | disposition short-term general hospital (02) ==
PROVIDERS: Emergency Provider Student in an Organized Health Care Education/Training Program; PCP Family Medicine
DX: G89.29 Other chronic pain (principal); M54.5 Low back pain; Z98.1 Arthrodesis status; R20.2 Paresthesia of skin; R29.6 Repeated falls; R32 Unspecified urinary incontinence
CPT/HCPCS: 80053; 96374; 99285; 72131; 85025

== ENCOUNTER 2020-09-29 03:51 | Observation (INO) | payer MEDICARE, SELFPAY ==
[2020-09-29] VITALS (20 sets, daily range): BP systolic 112–148; BP diastolic 31–82; PULSE 72–89; RESP 15–27; TEMP 36.2–37.2; O2SAT 92–97
--- NOTE | 2020-09-29 04:00 | DI.RAD_ITS ---
Exam(s) XR CHEST 1V IN DI DEPT EXAM: XR CHEST 1V IN DI DEPT CLINICAL HISTORY: altered mental status TECHNIQUE: 2D digital imaging was performed. COMPARISON: No exams were available for comparison FINDINGS: MEDIASTINUM: Normal. HEART: Mild cardiomegaly. PULMONARY VASCULATURE: Normal. LUNGS: No focal consolidating infiltrates. PLEURAL SPACE: No pleural effusion or pneumothorax. BONE:Within normal limits for the patient's age. Postsurgical changes in the cervical spine. OTHER FINDINGS:Normal. IMPRESSION: No acute pulmonary findings. DATA REPOSITORY: RADIATION DOSE DELIVERED:
--- NOTE | 2020-09-29 04:00 | RT.EKG_ITS ---
APPROVED REPORT Exam: Resting ECG Patient Location: E HR:84 bpm ECG Measurements Heart Rate [address] 175 P -34 QRSd 96 QRS 45 QT 396 T 65 QTc 468 Conclusion Sinus rhythm...normal P axis, V-rate 60- 99 Ventricular premature complex...V complex w/ short R-R interval Otherwise normal ECG I have reviewed and interpreted ECG and agree with software generated interpretation.
--- NOTE | 2020-09-29 04:00 | DI.CT_ITS ---
Exam(s) CT HEAD WO EXAM: CT HEAD WO CLINICAL HISTORY: altered mental status. TECHNIQUE: Imaging Protocol: Axial computed tomography images with coronal and sagittal reformatted images were created and reviewed COMPARISON: MR MR BRAIN WO from 05/08/2019 FINDINGS: The examination is limited due to patient motion artifact. Ventricles and Extra axial spaces: Normal in size and morphology for the patient's age. Hemorrhage: None. Cerebral parenchyma: There are areas of decreased attenuation in the white matter most consistent wit h chronic microvascular ischemic change. No acute territorial infarct. Midline shift: None. Brainstem/Cerebellum: Normal. Calvarium: Normal. Visualized Paranasal sinuses/Mastoids: Clear. Soft Tissues: Unremarkable. IMPRESSION: No acute intracranial process. RADIATION DOSE DELIVERED: 1,031.63mGy.cm Total DLP DATA REPOSITORY: All CT scans at this facility are submitted to the National Radiology Data Registry (NRDR) Dose Index Registry (DIR) with the [employer] (ACR). RADIATION OPTIMIZATION: All CT scans at this facility use at least one of these dose optimization te chniques: automated exposure control; mA and/or kV adjustment per patient size (includes targeted exa ms where dose is matched to clinical indication); or iterative reconstruction.
--- NOTE | 2020-09-29 04:00 | ED.GENADUL_ITS ---
Discharge Plan Disposition Patient Disposition: [facility] INPATIENT Condition: Poor Discharge Details Clinical Impression: Acute alteration in mental status Primary Care Provider: Mayra Bedoya ED Provider: Aiden Olea [place] Meds and New Rx's Prescriptions: No Action Narcan 4 MG spray,non-aerosol 4 mg NS ONCE Qty: 1 RF: 0 hydrochlorothiazide 25 mg tablet 25 mg PO DAILY RF: 0 amitriptyline 100 mg tablet 100 mg PO QHS RF: 0 carisoprodol 350 mg tablet 350 mg PO TID PRNRF: 0 prednisone 5 mg tablet 15 mg PO DAILY RF: 0 gabapentin 800 mg tablet 800 mg PO QID RF: 0 alprazolam 0.5 mg tablet 0.5 mg PO TID RF: 0 pantoprazole 40 mg tablet,delayed release (DR/EC) 40 mg PO DAILY RF: 0 propranolol 20 mg tablet 20 mg PO DAILY RF: 0 quetiapine [Seroquel XR] 150 mg Tablet Extended Release 24 Hr 150 mg PO HS RF: 0 amlodipine 5 mg Tablet 5 mg PO DAILY AM RF: 0 fluoxetine 40 mg Capsule 40 mg PO DAILY AM RF: 0 losartan 100 mg Tablet 100 mg PO DAILY AM RF: 0 melatonin 10 mg Tablet 10 mg PO HS RF: 0 Medical Decision Making Patient presenting with altered mental status with a number of pills and pill bottles found on the floor with recently filled oxycodone bottle was empty. Suspect that this is polysubstance ingestion. Unknown intent though likely was trying to control pain. Patient given 0.4 mg of Narcan and became more aware and easier to understand. Patient stating she needs to use the bathroom. Johnson catheter placed and a liter of urine returned. IV fluids started. Head CT and chest x-ray ordered. Laboratory studies including Tylenol, salicylate, alcohol ordered. Patient initially very restless after the Narcan but was able to follow direction and seem to be more aware. Laboratory studies are unremarkable for the most part. Her white count and platelets are up likely due to her recent surgery. Hemoglobin low at 10.5 but do not have a recent baseline. Tylenol, aspirin, alcohol negative. Drug screen with tricyclic and benzodiazepines. Narcotic negative but oxycodone would not show up on the screen. Head CT negative. Chest x-ray unremarkable. Suspect encephalopathy secondary to multiple medications. Unknown intent and will need to discuss when mental status clears. Case discussed with hospitalist who accepts the patient for admission. Lab Data Lab results reviewed: Yes I reviewed the patient's lab results. Lab results narrative: Elevated white count of 13.76. Anemic with a hemoglobin of 10.5. Chemistries unremarkable. Potassium just slightly low. Liver fun ction normal. Urine negative. Tylenol aspirin and alcohol negative. Drug screen positive for tricyclic and benzodiazepines. HPI General Mode of arrival: EMS . Date/Time Provider Initiated Documentation: 09/29/20 04:00 . Limitations to Documentation: altered mental status . Information obtained by: EMS . HPI Narrative: Patient brought in by ambulance after found on the floor at home by sister with altered mental status. Patient had back surgery recently and was discharged from the hospital 2 days ago. She was found on the floor with pills in pill bottle on the floor. She had a prescription for oxycodone No. 30 that was filled on the day of discharge that is now empty other medications at home include alprazolam, amitriptyline, gabapentin, carisoprodol, antihypertensives. Unclear what she took. Per EMS blood sugar was in the 90s. IV was started. Narcan not given as breathing and O2 saturations were okay. She would respond to loud verbal stimuli and painful stimuli for EMS Related Data Home Medications Medication Instructions Recorded Confirmed Narcan 4 mg NS ONCE #1 spray 11/03/16 07/19/20 amlodipine 5 mg PO DAILY AM 05/08/19 07/19/20 fluoxetine 40 mg PO DAILY AM 05/08/19 07/19/20 losartan 100 mg PO DAILY AM 05/08/19 07/19/20 melatonin 10 mg PO HS 05/08/19 07/19/20 quetiapine [Seroquel XR] 150 mg PO HS 05/08/19 07/19/20 amitriptyline 100 mg PO QHS 03/10/20 07/19/20 hydrochlorothiazide 25 mg PO DAILY 03/10/20 07/19/20 alprazolam 0.5 mg PO TID 07/19/20 07/19/20 carisoprodol 350 mg PO TID PRN 07/19/20 07/19/20 gabapentin 800 mg PO QID 07/19/20 07/19/20 pantoprazole 40 mg PO DAILY 02/19/21 02/19/21 prednisone 15 mg PO DAILY 07/19/20 07/19/20 propranolol 20 mg PO DAILY 07/19/20 07/19/20 Allergies Allergy/AdvReac Type Severity Reaction Status Date / Time NSAIDS (Non-Steroidal Allergy DUE TO Unverified 07/19/20 16:34 Anti-Inflamma RENAL FAILURE General ADRIAN: 3 Review of Systems Unobtainable due to mental status PFSH Medical History Anxiety disorder Arthritis Cervical pain Chronic pain Depression Foot drop HTN (hypertension) Kidney stones Lumbosacral pain Migraines Panic attacks Tobacco use Vitamin D deficiency Surgical History ANTERIOR LUMBAR INTERBODY FUSION (~1998) Cervical Procedure (~1998) HX CERVICAL CA HEMILAMINECTOMY LUMBAR SURGERY (~1998) MICRODISCECTOMY (~1996) Oophrectomy, Right Social History Smoking/Tobacco Use Status: Current every day Tobacco Type: cigarettes Smoking risk assessment performed?: Yes Alcohol Intake: never Drug use: Rarely Substance use type: marijuana Do you feel safe at home: Yes Do you feel safe in your relationship?: Yes Exam Narrative Exam Narrative: Const: Obese female altered and somnolent. HEENT: NC/AT. Normal facial exam. Eyes: Pupils are midsize and somewhat reactive Neck: Supple. Trachea midline. Lungs: Normal respiratory effort. Lungs are clear. Cor: RRR without murmur/gallop. Good radial pulses. GI: Soft. NT/ND. No guarding or rebound. Neuro: Altered, somnolent, does respond to loud verbal and noxious stimuli. Slurred speech. Cranial nerves II - XII appear grossly intact. PRADO x4 equally.. Ext: No C/C/E. Skin: Warm and dry without lacs/abrasions.
[2020-09-29] MEDS: Normal Saline 1,000 ML 125 ML IV ×3 (04:10→21:02)
[2020-09-29] MEDS: Naloxone 0.4 MG/ML VIAL IVP (04:10)
[2020-09-29 04:19] LABS: Abs Immature Grans 0.21 10^3/uL (0.0-0.06); Absolute Lymphocyte Count 3.15 10^3/uL (1.2-3.4); Absolute Monocyte Count 0.89 10^3/uL (0.1-0.8); Basophils % 0.4; Eosinophils % 0.7; HCT 34.4 % (36.0-46.0); HGB 10.5 g/dL (11.2-15.7); Immature Grans % 1.5; Lymphocytes % 22.9; MCH 26.9 pg (27.0-33.0); MCHC 30.5 % (32.0-36.0); MPV 8.7 fL (8.0-11.0); Monocytes % 6.5; Nucleated RBC 0 %; Platelet Count 634 10^3/uL (130-400); RBC 3.91 10^6/uL (3.93-5.22); RDW 15.3 % (11.7-14.6); RDW-SD 49.7 fL; WBC 13.76 10^3/uL (4.4-10.8)
[2020-09-29 04:29] LABS: Absolute Basophil Count 0.06 10^3/uL (0.0-0.2); Absolute Neutrophil Count 9.36 10^3/uL (1.2-6.7)
[2020-09-29 04:32] LABS: *AMPHETAMINES SCREEN URINE Negative (Negative); *BARBITURATES SCREEN URINE Negative (Negative); *BENZODIAZEPINES SCREEN URINE Positive (Negative); Cannabinoids THC Negative (Negative); Cocaine Screen,Urine Negative (Negative); METHADONE URINE SCREEN Negative (Negative); OPIATES URINE SCREEN Negative (Negative); Salicylate 3.3 mg/dL (<2.8)
[2020-09-29 04:35] LABS: ALT 34 U/L (14-59); AST 14 U/L (15-37); Albumin 3.6 g/dL (3.4-5.0); Alkaline Phosphatase 128 U/L (46-116); Anion Gap 12.5 mmol/L (3-11); BUN 16 mg/dL (7-18); Bilirubin, Direct 0.1 mg/dL (0.0-0.2); Bilirubin, Total 0.2 mg/dL (0.2-1.0); CO2 28.5 mmol/L (21.0-32.0); CREATININE 0.9 mg/dL (0.55-1.02); Calcium 9.1 mg/dL (8.5-10.1); Chloride 105 mmol/L (98-107); Glucose 90 mg/dL (74-106); Magnesium 1.8 mg/dL (1.8-2.4); Potassium 3.3 mmol/L (3.5-5.1); Sodium 146 mmol/L (136-145); Total Protein 7.6 g/dL (6.4-8.2)
[2020-09-29 04:43] LABS: Acetaminophen < 2 ug/mL (10-30); ETHANOL BLOOD < 3.0 mg/dL (<3); Tricyclic Antidepressants Positive (Negative)
[2020-09-29 04:46] LABS: Bilirubin Negative (Negative); Blood Negative (Negative); Clarity Clear (Clear); Glucose Negative (Negative); Ketones Negative (Negative); Leukocyte Esterase Negative (Negative); Nitrite Negative (Negative); Urobilinogen 0.2 EU/dL (Up TO 0.2)
--- NOTE | 2020-09-29 05:16 | DI.VRAD_ITS ---
PROCEDURE INFORMATION: Exam: XR Chest Exam date and time: 09/29/2020 5:10 AM Age: 54 years old Clinical indication: Condition or disease; Other: Altered mental status TECHNIQUE: Imaging protocol: XR of the chest. Views: 1 view. COMPARISON: No relevant prior studies available. FINDINGS: Lungs: Mild chronic interstitial prominence. No consolidation. Pleural spaces: No pleural effusion. No pneumothorax. Heart/Mediastinum: Mild cardiomegaly. Bones/joints: Postsurgical changes in the anterior cervical spine IMPRESSION: No focal consolidation Mild interstitial prominence, presumed chronic Mild cardiomegaly Dictated and Authenticated by: Jensen Adams MD. Ordering:ADRIAN Wolfe MD
--- NOTE | 2020-09-29 05:18 | DI.VRAD_ITS ---
PROCEDURE INFORMATION: Exam: CT Head Without Contrast Exam date and time: 09/29/2020 4:08 AM Age: 54 years old Clinical indication: Altered mental status/memory loss TECHNIQUE: Imaging protocol: Computed tomography of the head without contrast. COMPARISON: MR BRAIN WO 05/08/2019 3:08 PM FINDINGS: Mildly limited due to motion artifact Brain: Mild volume loss No hemorrhage. Mild white matter disease. No mass effect. Cerebral ventricles: No ventriculomegaly. Bones/joints: Unremarkable. No acute fracture. Paranasal sinuses: Visualized sinuses are unremarkable. No fluid levels. Mastoid air cells: Visualized mastoid air cells are well aerated. Soft tissues: Unremarkable. IMPRESSION: No acute intracranial abnormality. Dictated and Authenticated by: Jensen Adams MD. Ordering:ADRIAN Wolfe MD
--- NOTE | 2020-09-29 06:03 | HPE_ITS ---
Date of service: 09/29/20 Time of Service: 06:03 Assessment and Plan Assessment and plan (1) Altered mental status associated with intoxication: Start date: 09/29/20 Status: Acute Assessment and plan: This is a 54-year-old lady with recent surgery of the lumbar spine for degenerative disc disease and spondylosis. She was prescribed a larger number of oxycodone than her baseline by history which is vague. She appears to have ingested the entire bottle of 30 tablets of 15 mg oxycodone over 2 days after discharge. She is not in respiratory distress and guarding her airway well with increasing level of consciousness gradually as observed. She did receive a small dose of Narcan in the ED. No further Narcan will be used unless patient has decreased respiratory efforts which is unlikely. She may have some tolerance to chronic narcotics. Urine drug screen showed no un- prescribed medications with oxycodone not screened in MARK. This appears to be an accidental over-treatment of acute pain with chronic pain. Once patient awakens she needs to be evaluated for possible suicidal ideation. She is a full code. (2) Spondylosis of lumbar region without myelopathy or radiculopathy: Status: Chronic Assessment and plan: Recent surgery with clean incision over most of the lumbar spine area without swelling or discharge. Monitor clinically and have physical therapy evaluate the patient when she awakens (3) Anxiety disorder: Status: Chronic Assessment and plan: Continue monitoring as patient awakens holding anxiolytic for now to avoid oversedation and respiratory suppression. There is no indication for reversal agents at this time. Qualifiers: Anxiety disorder type: other mixed anxiety disorder Qualified Code(s): F41.3 - Other mixed anxiety disorders (4) Chronic pain: Status: Chronic Assessment and plan: Patient has multiple diagnoses of chronic pain and is obese and appears deconditioned. Hold sedating medications such as gabapentin and Elavil for now and reevaluate initiation once patient awakens. Qualifiers: Chronic pain type: chronic pain syndrome Qualified Code(s): G89.4 - Chronic pain syndrome (5) HTN (hypertension): Status: Chronic Assessment and plan: Stable presently with hydrochlorothiazide to be held and IV hydration along with potassium supplementation as indicated. Reevaluate reinitiation of medical therapy once patient awakens. If patient remains on hy drochlorothiazide she needs to have electrolytes monitored more closely with potassium replacement. Qualifiers: Hypertension type: essential hypertension Qualified Code(s): I10 - Essential (primary) hypertension History of Present Illness Narrative: This is a 54-year-old female patient who was found on the floor by her sister earlier the morning of admission through the ED. The patient has had recent lumbar surgery for degenerative disc disease and was released from the hospital 2 days prior to presentation. She was prescribed oxycodone 15 mg, number 30 tablets with this bottle being found empty by the patient on the floor the morning of admission. The patient also is on multiple medications with ch ronic pain and chronically being on oxycodone. She is also on Neurontin, Soma and Elavil as well as antihypertensives including hydrochlorothiazide with slight dehydration upon presentation. ED evaluation revealed the patient to be oversedated and short period of awakening with Narcan. She was given low-dose Narcan to avoid invoking withdrawal. She was not hypoglycemic, did have signs of dehydration with increased sodium with decreased potassium with chronic hydrochlorothiazide for blood pressure control. Evaluation in the ED also revealed a normal CT scan of the head and unremarkable chest x-ray. Labs otherwise were unrevealing with urine drug screen negative. Patient was retaining urine and does have a Johnson in place. She was not incontinent of urine or stool. She had no focal neurological vomiting but appeared encephalopathic. There is no history to suggest suicide attempt. Patient does have chronic anxiety and depression. Patient was not able to offer further history. The patient was breathing comfortably and guarding her airway with head elevated at 45 degrees. She was arousable only to painful stimuli when EMS arrived at her home and was responding to verbal stimuli when admitted to [facility]. When asked where the patient was she thought [facility] her [facility] surgery. Patient is a full code. Review of Systems Narrative: 13 point review of systems otherwise unrevealing and stable by history or unobtainable with patient's altered mental status.. [facility] Medical History Anxiety disorder Arthritis Cervical pain Chronic pain Depression Foot drop HTN (hypertension) Kidney stones Lumbosacral pain Migraines Panic attacks Tobacco use Vitamin D deficiency Surgical History ANTERIOR LUMBAR INTERBODY FUSION (~1998) Cervical Procedure (~1998) HX CERVICAL CA HEMILAMINECTOMY LUMBAR SURGERY (~1998) MICRODISCECTOMY (~1996) Oophrectomy, Right Social History Smoking/Tobacco Use Status: Current every day Tobacco Type: cigarettes Smoking risk assessment performed?: Yes Alcohol Intake: never Drug use: Rarely Substance use type: marijuana Do you feel safe at home: Yes Do you feel safe in your relationship?: Yes Meds Allergies and Home Medications Allergies Allergy/AdvReac Type Severity Reaction Status Date / Time NSAIDS (Non-Steroidal Allergy DUE TO Unverified 07/19/20 16:34 Anti-Inflamma RENAL FAILURE Home Medications Medication Instructions Recorded Confirmed Type Narcan 4 mg NS ONCE #1 spray 11/03/16 09/29/20 History amlodipine 5 mg PO DAILY AM 05/08/19 09/29/20 History fluoxetine 40 mg PO DAILY AM 05/08/19 09/29/20 History losartan 100 mg PO DAILY AM 05/08/19 09/29/20 History melatonin 10 mg PO HS 05/08/19 09/29/20 History amitriptyline 100 mg PO QHS 03/10/20 09/29/20 History hydrochlorothiazide 25 mg PO DAILY 03/10/20 09/29/20 History alprazolam 0.5 mg PO TID 07/19/20 09/29/20 History carisoprodol 350 mg PO TID PRN 07/19/20 09/29/20 History gabapentin 800 mg PO TID 07/19/20 09/29/20 History pantoprazole 40 mg PO DAILY 07/19/20 09/29/20 History prednisone 15 mg PO DAILY 07/19/20 09/29/20 History propranolol 20 mg PO TID PRN 07/19/20 09/29/20 History acetaminophen 1,000 mg PO Q6H PRN 09/29/20 09/29/20 History furosemide 20 mg PO QAM PRN 09/29/20 09/29/20 History lamotrigine 100 mg PO QHS 09/29/20 09/29/20 History oxycodone 5 mg PO Q6H PRN 09/29/20 09/29/20 History pyridoxine (vitamin B6) 100 mg PO QHS 09/29/20 09/29/20 History quetiapine 25 mg PO HS 09/29/20 09/29/20 History quetiapine 200 mg PO HS 09/29/20 09/29/20 History ropinirole 1 mg PO TID 09/29/20 09/29/20 History zolpidem 5 mg PO QHS PRN 09/29/20 09/29/20 History Exam Narrative Exam Narrative: General: Patient appears older than stated age, moderate to morbidly obese and obtunded with change in mental status. She is responding to verbal stimuli. She appears in moderate distress when awakened with discomfort over her back though not able to vocalize. She is not oriented to person place or time. HEENT: Normocephalic, eyes with pupils equal and reactive to light symmetrically, extraocular movement intact and sclera anicteric. Oropharynx with dry mucosa and poor dentition having discoloration and missing teeth. Neck: Supple without JVD. Lungs: Poor inspiratory effort but clear to auscultation with no focalizing rales or rhonchi. Normal expiratory phase and no expiratory wheeze. Back: Stooped posture with clean healing incision running over the entirety of the lumbar spine area. No swelling and no drainage. Heart: Regular rate and rhythm with quiet systolic murmur over the precordium. No gallops or rubs. Breast: Exam deferred. Abdomen: Obese contour, soft and nontender to palpation without palpable hepatosplenomegaly. Bowel sounds positive in all quadrants. Genitalia/rectal: Exam deferred. Johnson catheter is in place. Extremities: Moderate nonpitting edema of both lower extremities with fair capillary refill. No cyanosis or clubbing. All joints appear to have decreased range of motion and patient overall looks deconditioned. No focalizing muscle atrophy. Skin: Normal color, warm and dry. Normal turgor. Neuro: Patient is obtunded but has no focalizing findings moving all extremities when aroused. Cranial nerves II through XII appear to be grossly intact. No focal motor deficits or tremor. No clonus. Babinski is absent. Psych: Patient is obtunded but appears to have flattened affect. Mood is undetermined. No obvious abnormal thought processes. Remote and recent memory is not assessable at this time. Results Imaging Imaging Studies: EXAM: CT HEAD WO CLINICAL HISTORY: altered mental status. TECHNIQUE: Imaging Protocol: Axial computed tomography images with coronal and sagittal reformatted images were created and reviewed COMPARISON: MR MR BRAIN WO from 05/08/2019 FINDINGS: The examination is limited due to patient motion artifact. Ventricles and Extra axial spaces: Normal in size and morphology for the patient's age. Hemorrhage: None. Cerebral parenchyma: There are areas of decreased attenuation in the white matter most consistent with chronic microvascular ischemic change. No acute territorial infarct. Midline shift: None. Brainstem/Cerebellum: Normal. Calvarium: Normal. Visualized Paranasal sinuses/Mastoids: Clear. Soft Tissues: Unremarkable. IMPRESSION: No acute intracranial process. EXAM: XR CHEST 1V IN DI DEPT CLINICAL HISTORY: altered mental status TECHNIQUE: 2D digital imaging was performed. COMPARISON: No exams were available for comparison FINDINGS: MEDIASTINUM: Normal. HEART: Mild cardiomegaly. PULMONARY VASCULATURE: Normal. LUNGS: No focal consolidating infiltrates. PLEURAL SPACE: No pleural effusion or pneumothorax. BONE:Within normal limits for the patient's age. Postsurgical changes in the cervical spine. OTHER FINDINGS:Normal. IMPRESSION: No acute pulmonary findings. Labs Result diagrams: 09/29/20 04:00 09/29/20 04:00 Labs: Laboratory Results - last 24 hr 09/29/20 09/29/20 09/29/20 04:00 04:00 04:00 WBC 13.76 H RBC 3.91 L Hgb 10.5 L Hct 34.4 L MCV 88.0 MCH 26.9 L MCHC 30.5 L RDW 15.3 H Plt Count 634 H MPV 8.7 Immature Gran % 1.5 Neutrophils % 68.0 Lymphocytes % 22.9 Monocytes % 6.5 Eosinophils % 0.7 Basophils % 0.4 Nucleated RBC % 0 Absolute Neutrophils 9.36 H Absolute Lymphocytes 3.15 Absolute Monocytes 0.89 H Absolute Eosinophils 0.10 Absolute Basophils 0.06 Sodium 146 H Potassium 3.3 L Chloride 105 Carbon Dioxide 28.5 Anion Gap 12.5 H BUN 16 Creatinine 0.9 Estimated GFR/1.73 m2 >= 60.00 Glucose 90 Calcium 9.1 Magnesium 1.8 Total Bilirubin 0.2 Conjugated Bilirubin 0.1 AST 14 L ALT 34 Alkaline Phosphatase 128 H Total Protein 7.6 Albumin 3.6 Urine Color Urine Clarity Urine pH Ur Specific [place] Urine Protein Urine Ketones Urine Blood Urine Nitrite Urine Bilirubin Urine Urobilinogen Ur Leukocyte Esterase Urine Glucose Salicylates 3.3 Urine Opiates Screen Urine Methadone Screen Acetaminophen < 2 Ur Barbiturates Screen Ur Tricyclics Screen Ur Amphetamines Screen U Benzodiazepines Scrn Urine Cocaine Screen Ur THC Screen Ethyl Alcohol < 3.0 09/29/20 09/29/20 04:00 04:00 WBC RBC Hgb Hct MCV MCH MCHC RDW Plt Count MPV Immature Gran % Neutrophils % Lymphocytes % Monocytes % Eosinophils % Basophils % Nucleated RBC % Absolute Neutrophils Absolute Lymphocytes Absolute Monocytes Absolute Eosinophils Absolute Basophils Sodium Potassium Chloride Carbon Dioxide Anion Gap BUN Creatinine Estimated GFR/1.73 m2 Glucose Calcium Magnesium Total Bilirubin Conjugated Bilirubin AST ALT Alkaline Phosphatase Total Protein Albumin Urine Color Yellow Urine Clarity Clear Urine pH 6.0 Ur Specific [place] 1.020 Urine Protein Negative Urine Ketones Negative Urine Blood Negative Urine Nitrite Negative Urine Bilirubin Negative Urine Urobilinogen 0.2 Ur Leukocyte Esterase Negative Urine Glucose Negative Salicylates Urine Opiates Screen Negative Urine Methadone Screen Negative Acetaminophen Ur Barbiturates Screen Negative Ur Tricyclics Screen Positive A Ur Amphetamines Screen Negative U Benzodiazepines Scrn Positive A Urine Cocaine Screen Negative Ur THC Screen Negative Ethyl Alcohol Last Vital Signs Temp 36.2 C L 09/29/20 03:58 Pulse 82 09/29/20 05:15 Resp 20 09/29/20 05:20 BP 136/76 09/29/20 05:15 Pulse Ox 93 09/29/20 05:20 COVID-19 Screening Have you, or household traveled for leisure in last 14 days?: No Had IN PERSON contact w/suspected or confirmed C-19 person: No
[2020-09-29 06:20] LABS: Source Nasal/Nares
[2020-09-29 08:17] LABS: TSH (W/Ref FT4) 3.27 uIU/mL (0.36-3.74)
[2020-09-29] MEDS: predniSONE 5 MG TAB 15 MG PO (08:54)
[2020-09-29] MEDS: amLODIPine 5 MG TAB PO (08:55)
[2020-09-29] MEDS: Pantoprazole 40 MG TABCR PO (08:55)
[2020-09-29] MEDS: FLUoxetine 20 MG CAP 40 MG PO (08:55)
[2020-09-29] MEDS: Losartan 50 MG TAB 100 MG PO (08:55)
[2020-09-29] MEDS: Propranolol 20 MG TAB PO (08:55)
[2020-09-29] MEDS: Heparin 5,000 UNITS/ML VIAL 5000 UNITS SC ×3 (08:56→23:48)
--- NOTE | 2020-09-29 09:54 | W.PM.PROGNOT ---
Date of Service Date of service: 09/29/20 Time of Service: 09:30 Subjective Subjective Interval history since last seen: Recent back surgery on 09/13/20 at [facility], Dr. Dhaliwal, and she was discharged 09/26/20. She was staying with her sister after surgery. Pain is tolerable at 4/10 right now. Endorses baseline RLE drop foot and numbness. She also reports new LLE tingling since her surgery. She denies saddle anesthesia. She reports that she fell prior to EMS being called last night. Denies suicidal intent or thoughts of self harm. She does not remember taking the pills. Would be interested in rehab stay, says she is having a hard time at home. She feels hungry, she has not eaten yet today. She denies N/V/D. Her bowels have been moving regularly. Exam Narrative Exam Narrative: General: appears stated age, drowsy, oriented, able to answer questions appropriately and engage in conversation. HEENT: normocephalic, atraumatic, PERRL, mucous membranes moist, poor dentition. Neck: supple, no JVD. Cardiovascular: heart has regular rate, nontachycardic, no murmur apprecaited. Respiratory: respirations appear even and unlabored, lung sounds are clear on anterior and lateral exam. GI: large round abdomen, +BS, soft, nontender on palpation, nondistended. Extremities: Drop foot on right, +pedal pulses bilaterally, moves all 4 extremities freely. Back: lower back with healing incision, no erythema or drainage. Objective Last Vital Signs Temp 36.8 C 09/29/20 07:09 Pulse 83 09/29/20 07:09 Resp 20 09/29/20 07:09 BP 119/79 09/29/20 07:09 Pulse Ox 93 09/29/20 07:09 Laboratory Results - last 24 hr 09/29/20 09/29/20 09/29/20 04:00 04:00 04:00 WBC 13.76 H RBC 3.91 L Hgb 10.5 L Hct 34.4 L MCV 88.0 MCH 26.9 L MCHC 30.5 L RDW 15.3 H Plt Count 634 H MPV 8.7 Immature Gran % 1.5 Neutrophils % 68.0 Lymphocytes % 22.9 Monocytes % 6.5 Eosinophils % 0.7 Basophils % 0.4 Nucleated RBC % 0 Absolute Neutrophils 9.36 H Absolute Lymphocytes 3.15 Absolute Monocytes 0.89 H Absolute Eosinophils 0.10 Absolute Basophils 0.06 Sodium 146 H Potassium 3.3 L Chloride 105 Carbon Dioxide 28.5 Anion Gap 12.5 H BUN 16 Creatinine 0.9 Estimated GFR/1.73 m2 >= 60.00 Glucose 90 Calcium 9.1 Magnesium 1.8 Total Bilirubin 0.2 Conjugated Bilirubin 0.1 AST 14 L ALT 34 Alkaline Phosphatase 128 H Total Protein 7.6 Albumin 3.6 TSH Urine Color Urine Clarity Urine pH Ur Specific [place] Urine Protein Urine Ketones Urine Blood Urine Nitrite Urine Bilirubin Urine Urobilinogen Ur Leukocyte Esterase Urine Glucose Salicylates 3.3 Urine Opiates Screen Urine Methadone Screen Acetaminophen < 2 Ur Barbiturates Screen Ur Tricyclics Screen Ur Amphetamines Screen U Benzodiazepines Scrn Urine Cocaine Screen Ur THC Screen Ethyl Alcohol < 3.0 COVID-19 Source 09/29/20 09/29/20 09/29/20 04:00 04:00 04:00 WBC RBC Hgb Hct MCV MCH MCHC RDW Plt Count MPV Immature Gran % Neutrophils % Lymphocytes % Monocytes % Eosinophils % Basophils % Nucleated RBC % Absolute Neutrophils Absolute Lymphocytes Absolute Monocytes Absolute Eosinophils Absolute Basophils Sodium Potassium Chloride Carbon Dioxide Anion Gap BUN Creatinine Estimated GFR/1.73 m2 Glucose Calcium Magnesium Total Bilirubin Conjugated Bilirubin AST ALT Alkaline Phosphatase Total Protein Albumin TSH 3.27 Urine Color Yellow Urine Clarity Clear Urine pH 6.0 Ur Specific [place] 1.020 Urine Protein Negative Urine Ketones Negative Urine Blood Negative Urine Nitrite Negative Urine Bilirubin Negative Urine Urobilinogen 0.2 Ur Leukocyte Esterase Negative Urine Glucose Negative Salicylates Urine Opiates Screen Negative Urine Methadone Screen Negative Acetaminophen Ur Barbiturates Screen Negative Ur Tricyclics Screen Positive A Ur Amphetamines Screen Negative U Benzodiazepines Scrn Positive A Urine Cocaine Screen Negative Ur THC Screen Negative Ethyl Alcohol COVID-19 Source 09/29/20 06:10 WBC RBC Hgb Hct MCV MCH MCHC RDW Plt Count MPV Immature Gran % Neutrophils % Lymphocytes % Monocytes % Eosinophils % Basophils % Nucleated RBC % Absolute Neutrophils Absolute Lymphocytes Absolute Monocytes Absolute Eosinophils Absolute Basophils Sodium Potassium Chloride Carbon Dioxide Anion Gap BUN Creatinine Estimated GFR/1.73 m2 Glucose Calcium Magnesium Total Bilirubin Conjugated Bilirubin AST ALT Alkaline Phosphatase Total Protein Albumin TSH Urine Color Urine Clarity Urine pH Ur Specific [place] Urine Protein Urine Ketones Urine Blood Urine Nitrite Urine Bilirubin Urine Urobilinogen Ur Leukocyte Esterase Urine Glucose Salicylates Urine Opiates Screen Urine Methadone Screen Acetaminophen Ur Barbiturates Screen Ur Tricyclics Screen Ur Amphetamines Screen U Benzodiazepines Scrn Urine Cocaine Screen Ur THC Screen Ethyl Alcohol COVID-19 Source Nasal/nares
[2020-09-29] MEDS: Potassium Chloride 20 MEQ TABCR 40 MEQ PO (10:14)
[2020-09-29 12:17] LABS: COVID-19 PCR Negative (Negative)
--- NOTE | 2020-09-29 12:19 | PDOC.CMIN ---
- If Service Date Differs Date of service: 09/29/20 Time of Service: 13:58 Care Management Initial Assess REASON FOR HOSPITALIZATION:: AMS r/t intoxication and possible medication overdose PAST MEDICAL HISTORY/PAST SURGICAL HISTORY:: Anxiety disorder. Arthritis. Cervical pain. Chronic pain. Depression. Foot drop. HTN (hypertension). Kidney stones. Lumbosacral pain. Migraines. Panic attacks. Tobacco use. Vitamin D deficiency. ANTERIOR LUMBAR INTERBODY FUSION (~1998). Cervical Procedure (~1998). HX CERVICAL CA. HEMILAMINECTOMY. LUMBAR SURGERY (~1998). MICRODISCECTOMY (~1996). Oophrectomy, Right PREVIOUS FUNCTIONAL STATUS/SOCIAL/FAMILY SUPPORTS:: Venita had recent surgery of the lumbar spine for degenerative disc disease and spondylosis. She has multiple diagnosis of chronic pain, is obese and deconditioned. She is currently staying with her sister, Clarissa in [place], [place]. Previously independent at baseline; will await PT consult to determine current baseline of functioning. CURRENT FUNCTIONAL STATUS:: Venita was sleeping soundly when CM attempted to meet with her, she did not wake up when CM called her name, CM will continue to follow. ADVANCE DIRECTIVES:: None on file at [facility]. Has patient been provided with info about the portal/API?: No Did the patient sign up for the portal?: No CODE STATUS:: Full Code INSURANCE COVERAGE / FINANCIAL ISSUES:: [facility] CURRENT HOME/COMMUNITY SERVICES/EQUIPMENT:: FWW, knee brace PRIMARY CARE PHYSICIAN:: Michele Bedoya POTENTIAL DISCHARGE NEEDS:: SNF coordination, PT/OT evaluations. PATIENT/FAMILY EDUCATION NEEDS:: Review of discharge instructions, discuss Ask Me Three. Review of visitor policy. ANTICIPATED BARRIERS TO DISCHARGE:: None identified at this time. TRANSPORTATION:: TBD by disposition. PLAN:: CM called [facility] (P#[phone]) and confirmed dates of admission at their facility; Venita was admitted 09/13/20-09/26/20. Provider at that time was Dr. Dhaliwal of [facility] (P#[phone]). CM called Venita's sister, Clarissa who requested Venita be provided her cell phone as Clarissa and her other sister are anxious to speak with Venita, when she is alert. CM reviewed visitor policy, Venita reported both she and her sister were vaccinated and two weeks past their last shot so would visit between the hours of [id number]. Clarissa reported Venita resided with her prior to surgery and [facility] recommended SNF but were unable to secure a bed, so Venita returned home. Clarissa reports she was able to take small steps with her FWW but mostly laid down with ice and a brace on her leg. Anticipate Venita will discharge to SNF when ready per MD. Transportation to be determined by disposition and mobility needs.
[2020-09-29 12:48] LABS: Anion Gap 10.6 mmol/L (3-11); BUN 14 mg/dL (7-18); CO2 28.4 mmol/L (21.0-32.0); CREATININE 0.9 mg/dL (0.55-1.02); Calcium 8.6 mg/dL (8.5-10.1); Chloride 107 mmol/L (98-107); Glucose 115 mg/dL (74-106); Sodium 146 mmol/L (136-145)
[2020-09-29] MEDS: Acetaminophen 325 MG TAB 650 MG PO ×2 (12:57→19:42)
--- NOTE | 2020-09-29 13:32 | PHACLINREV_ITS ---
Pharmacy Admission Review - Admission Clinical Review (Last Reviewed 09/29/20 @ 06:09 by Giovanni Eid) Altered mental status associated with intoxication (Acute) NSAIDS (Non-Steroidal Anti-Inflamma Allergy (Unverified 07/19/20 16:34) DUE TO RENAL FAILURE Height 5 ft 10 in Weight 150.2 kg - Renal Dosing Renal Dosing: BUN 14 mg/dL (7-18) 09/29/20 12:32 Creatinine 0.9 mg/dL (0.55-1.02) 09/29/20 12:32 Medications needing adjustments: Reviewed (Crcl ~111.5mL/min using adjusted body weight. Current meds okay.) - Anticoagulation Anticoagulation: Hgb 10.5 g/dL (11.2-15.7) L 09/29/20 04:00 Hct 34.4 % (36.0-46.0) L 09/29/20 04:00 Plt Count 634 10^3/uL (130-400) H 09/29/20 04:00 Creatinine 0.9 mg/dL (0.55-1.02) 09/29/20 12:32 DVT Prohphylaxis: Reviewed Medications: Heparin Therapeutic Anticoagulation: N/A - Opiate Usage Evaluate Pain Scale/Pains Meds: N/A - Relevant Labs Sodium 146 mmol/L (136-145) H 09/29/20 12:32 Potassium 4.0 mmol/L (3.5-5.1) D 09/29/20 12:32 Chloride 107 mmol/L (98-107) 09/29/20 12:32 Magnesium 1.8 mg/dL (1.8-2.4) 09/29/20 04:00 Electrolytes, C-Reactive P, ESR: Reviewed - DM Control DM Control: Glucose 115 mg/dL (74-106) H 09/29/20 12:32 Insulin Dosing: N/A - Heart Failure/DE EF%, KATHLEEN's, B-Blockers, Diuretics: N/A - BP Control BP Control: Blood Pressure 119/79 Blood Pressure 112/73 Blood Pressure 136/76 Blood Pressure 136/76 Blood Pressure 148/73 If elevated: N/A - Qtc Review If Elevated: N/A (QTc 468 on admission) - IV to PO Switch IV Medications: Reviewed - Home Meds Home Med List reviewed: Intervened (Med rec completed based off med list from . Multiple TELECOMMUNICATOR depressants. Some meds haven't been picked up from pharmacy in awhile. Will get med list from PCPs office to see how compares/if some of the meds were discontinued before others started. Provider aware.) Relevent Home Meds Not ordered & why?: alprazolam, amitriptyline, carisoprodol, furosemide, gabapentin, HCTZ, lamotrigine, melatonin, narcan, oxycodone, pyridoxine, ropinirole, zolpidem. Most meds not ordered are being held due to altered mental status. - Current meds Current Medication Order Review: Intervened (Adjusted the timing of pantoprazole based on mediation commissioner time policy.) - Comments Comments/Follow Ups: Watch VS, labs, and for med changes. Will contact PCP's office for home med list to compare to that from .
[2020-09-29] MEDS: QUEtiapine 50 MG TAB 150 MG PO (21:02)
[2020-09-29] MEDS: oxyCODONE 5 MG TAB PO (21:07)
[2020-09-30 03:53] VITALS: BP 152/90; PULSE 75; RESP 19; TEMP 36.6; O2SAT 91
[2020-09-30] MEDS: Normal Saline 1,000 ML 125 ML IV (04:32)
[2020-09-30] MEDS: oxyCODONE 5 MG TAB PO ×2 (06:33→10:45)
[2020-09-30 06:48] LABS: Abs Immature Grans 0.05 10^3/uL (0.0-0.06); Absolute Basophil Count 0.02 10^3/uL (0.0-0.2); Absolute Eosinophil Count 0.13 10^3/uL (0.0-0.7); Absolute Lymphocyte Count 3.69 10^3/uL (1.2-3.4); Absolute Neutrophil Count 4.21 10^3/uL (1.2-6.7); Basophils % 0.2; Eosinophils % 1.5; HCT 30.6 % (36.0-46.0); HGB 9.3 g/dL (11.2-15.7); Immature Grans % 0.6; Lymphocytes % 42.9; MCH 26.6 pg (27.0-33.0); MCHC 30.4 % (32.0-36.0); MCV 87.7 fL (80-95); MPV 8.7 fL (8.0-11.0); Monocytes % 5.8; Nucleated RBC 0 %; Platelet Count 503 10^3/uL (130-400); RBC 3.49 10^6/uL (3.93-5.22); RDW 15.3 % (11.7-14.6); RDW-SD 49.1 fL
[2020-09-30 07:04] LABS: ALT 29 U/L (14-59); AST 15 U/L (15-37); Albumin 2.9 g/dL (3.4-5.0); Alkaline Phosphatase 108 U/L (46-116); Anion Gap 9.2 mmol/L (3-11); BUN 14 mg/dL (7-18); Bilirubin, Total 0.2 mg/dL (0.2-1.0); CO2 28.8 mmol/L (21.0-32.0); CREATININE 0.8 mg/dL (0.55-1.02); Calcium 8.7 mg/dL (8.5-10.1); Chloride 111 mmol/L (98-107); Glucose 88 mg/dL (74-106); Sodium 149 mmol/L (136-145); Total Protein 6.8 g/dL (6.4-8.2)
[2020-09-30 07:19] VITALS: BP 153/110; PULSE 78; RESP 18; TEMP 37.3; O2SAT 96
[2020-09-30 07:27] VITALS: BP 160/104
[2020-09-30] MEDS: predniSONE 5 MG TAB 15 MG PO (07:46)
[2020-09-30] MEDS: Propranolol 20 MG TAB PO (07:46)
[2020-09-30] MEDS: Losartan 50 MG TAB 100 MG PO (07:46)
[2020-09-30] MEDS: Normal Saline Flush 10 ML SYR IVP (07:47)
[2020-09-30] MEDS: Acetaminophen 325 MG TAB 650 MG PO (07:47)
[2020-09-30] MEDS: Pantoprazole 40 MG TABCR PO (07:47)
[2020-09-30] MEDS: Heparin 5,000 UNITS/ML VIAL 5000 UNITS SC (07:47)
[2020-09-30] MEDS: amLODIPine 5 MG TAB PO (07:47)
[2020-09-30] MEDS: FLUoxetine 20 MG CAP 40 MG PO (07:47)
--- NOTE | 2020-09-30 08:45 | PT.INIE ---
Date of service: 09/30/20 Time of Service: 08:45 PT Notes Visit Reasons: ALTERED MENTAL STATUS Physical Therapy Inpatient Initial Evaluation Date: 09/30/2020 Referring Doctor: Felecia Vasquez NP PT Orders: PT CONSULT: History recent back surgery Precautions: Fall. Standard. On back precautions. WB precaution for right LE needs to be clarified. Use of R knee immobilizer and R AFO when out of bed needs to be clarified as well. Patient Profile/Admitting Diagnosis: Venita is a 54-year-old female who presented to the ED on 09/29/2020 with altered mental status. 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 PMHX: Medical History Anxiety disorder Arthritis Cervical pain Chronic pain Depression Foot drop HTN (hypertension) Kidney stones Lumbosacral pain Migraines Panic attacks Tobacco use Vitamin D deficiency Surgical History ANTERIOR LUMBAR INTERBODY FUSION (~1998) Cervical Procedure (~1998) HX CERVICAL CA HEMILAMINECTOMY LUMBAR SURGERY (~1998) MICRODISCECTOMY (~1996) Oophrectomy, Right Social History/Home Situation: Moved to [place] 3 to 4 years ago since and came to [place] to live with older sister. Equipment Owned/DME: Front wheeled walker, single-point cane, knee immobilizer, AFO Subjective: Venita indicates that she was told by the nurse to put no weight on the right lower extremity because of a fracture that they saw during her rehabilitation stay at [facility]. She states that she was advised to wear a knee immobilizer and air right ankle-foot orthosis when she transfers and moves. However she states that said devices are both at home. She reports 8 falls in the past year with 1 fall happening after her surgery on 09/13/2020. States that her sister has been a very good support for her. Objective: General Observation: Supine in bed. Surgical incision in low back well-approximated Mental Status: Alert and oriented as to person, place, time, and purpose. Able to pay attention, focus, and respond appropriately. Pain: 12/05/09 in back and right LE with weight bearing ROM: Right Upper Extremity: Shoulder Flexion WFL. Shoulder abduction WFL. Shoulder ER/IR WFL. Elbow flexion WFL. Forearm pronation/supination WFL. Wrist flexion WFL. Opening and closing of hand WFL. Left Upper Extremity: Shoulder Flexion WFL. Shoulder abduction WFL. Shoulder ER/IR WFL. Elbow flexion WFL. Forearm pronation/supination WFL. Wrist flexion WFL. Opening and closing of hand WFL. Right Lower Extremity: Hip flexion about 100 degrees. Hip abduction WFL. Hip ER/IR WFL. Knee flexion WFL. Knee extension -20 degrees. Ankle dorsiflexion/eversion absent. Ankle plantarflexion/inversion -10 degrees to 30 degrees. Left Lower Extremity: Hip flexion WFL. Hip abduction WFL. Hip ER/IR WFL. Knee flexion WFL. Knee extension. Ankle dorsiflexion WFL. Ankle plantarflexion WFL. Strength: Right Upper Extremity: Shoulder flexors 5/5. Shoulder abductors 5/5. Shoulder ER 5/5/ Shoulder IR 5/5. Forearm pronators 5/5. Forearm supinators 5/5. Elbow flexors 5/5. Elbow extensors 5/5. Oxygen System Tester strong. Left Upper Extremity: Shoulder flexors 5/5. Shoulder abductors 5/5. Shoulder ER 5/5/ Shoulder IR 5/5. Forearm pronators 5/5. Forearm supinators 5/5. Elbow flexors 5/5. Elbow extensors 5/5. Oxygen System Tester strong. Right Lower Extremity: Hip flexors 3-/5. Hip abductors 4-/5. Hip external rotators 4-/5. HIp internal rotators 4-/5. Knee flexors 3-/5. Knee extensors 3-/5. Ankle dorsiflexors/evertors 1/5. Ankle plantarflexors/invertors 3-/5. Left Lower Extremity: Hip flexors 4/5. Hip abductors 4/5. Hip external rotators 4/5. HIp internal rotators 4/5. Knee flexors 4/5. Knee extensors 4/5. Ankle dorsiflexors/evertors 4/5. Ankle plantarflexors/invertors 4/5. Bed Mobility/Transfers: Rolling supervision Supine to sit supervision Sit to stand standby assist Stand to sit contact-guard assist Bed to bedside commode contact-guard assist Bedside commode to bed contact-guard assist Bed to chair contact-guard assist Gait: Distance of 15 feet +5 feet requiring contact-guard assist. Emili decreased. Step height on right decreased. Step length decreased on right. Absent dorsiflexion on right LE due to pre-existing foot drop. Patient indicated after ambulation activity that she was told by the doctor to not put weight on the R LE due to presence of fracture in her leg. She verbalized that said restriction should continue to apply as of today. She feels that this may be why she hurt too much when she covered this short distance. Balance: Static Sitting: Normal Dynamic Sitting: Normal Static Standing: Fair Dynamic Standing: Fair Special Tests: Mobility Limitations Standardized Measure [facility] AM-PAC 6 clicks Basic Mobility Inpatient Short Form: Raw Score: 15 CMS Score: 58% deficit Informed Consent/Education: Patient instructed in purpose of PT consult and plan of care. Agreeable to proceed with established PT POC to achieve personal goals. Assessment: [place] demonstrates functional mobility decline requiring the use of a front wheeled walker as well and has the assistance of another caregiver for all mobility ADL performance. Clarifications regarding her weight bearing status as well as orders for the use of knee immobilizer and AFO need to be done in order to ensure fall risk reduction at discharge destination. Patient fell after her most recent back surgery and has had 7 falls in the past year which may require SNF placement at this time. Patient presents with clinical signs and symptoms consistent with current/admitting diagnoses that have resulted to mobility limitations, gait instability, generalized weakness, and impairment of motor control as demonstrated by the following impairment level findings: 1. Decreased strength to right LE major muscle groups 2. Impaired sitting/standing balance 3. Impaired activity tolerance 4. Limitation of joint range of motion in back, and right LE Impairments are contributing to the following functional limitations: 1. Increased dependence with transfers 2. Inability to safely ambulate without assistive device and physical assistance 3. Increase completion time for mobility ADL performance 4. Increased fall risk 5. Inability to negotiate steps alone safely 6. Inability to return to prior living environment at this time Patient is assessed as a 82691 moderate complexity based on the following: History: 54-year-old female with past medical history as indicated above Examination: Demonstrable impairment in strength, balance, and mobility level with underlying impairments and functional limitations as exhibited above as well as deficit score of 58% utilizing the [facility] Mobility Inpatient Short Form Presentation: Evolving Decision Makin moderate complexity Goals: Goals X1 week 1. Supine-Sit independent 2. Sit-Supine independent 3. Sit-Stand independent 4. Stand-Sit independent 5. Bed-Chair independent 6. Chair-Bed independent 7. Independent gait on level surface with use of front wheeled walker for at least 50 feet without report of pain nor dyspnea using right knee immobilizer and right AFO 8. Independent stair negotiation while holding onto B rails for at least 5 steps without report of pain nor dyspnea 9. Independent with home exercise program 10. Good static and dynamic standing balance/tolerance Plan of Care/Treatment Plan: 1-2x/day, 7 days/week x 1 week. Plan of care has been reviewed with the TEXTILE SCREEN PRINTER providing the service under Physical Therapy direction. Initiate Physical Therapy intervention for strengthening, bed mobility, transfers, gait, stairs, balance training, and use of assistive device. DISCHARGE RECOMMENDATIONS: Patient will benefit from detention facility placement for continued skilled physical therapy services in order to progress mobility level, strength, and balance. Clarification regarding weightbearing precaution, use of knee immobilizer, and AFO on the left LE will need to be sought in order to maximize mobility ADL performance discharge destination TREATMENT CODE/TIME: 43078 x 20 minutes, 56108 x 12 minutes beginning at 8:45 AM. Thank you for the opportunity to participate in the care of this patient. Orly Schaefer PT, DPT, CLT [facility] [place], [place]
[2020-09-30 09:36] VITALS: BP 138/96
[2020-09-30 11:44] VITALS: BP 134/83; PULSE 74; RESP 18; TEMP 36.7; O2SAT 96
--- NOTE | 2020-09-30 12:02 | PDOC.CMDIS ---
LACE Index Scoring Tool - Questions: Length of Stay (in days): 1 Acuity (Admit via E.D.?): Yes E.D. Visits: 3 - Answers: Total Score: 7 Risk of Readmission: Low Risk Care Management Discharge Reason for Hospitalization: AMS r/t intoxication and possible medication overdose Discharge Plan: Venita will discharge home, to her sisters home when ready per MD. She will resume VNA services and transport via private vehicle with her sister, Clarissa. Patient/Family Education Needs: Review discharge instructions, discuss Ask Me Three. Services Needed at Discharge: Home Health Care Services (Resumption of RN/PT/OT/SUPERVISOR THROWING DEPARTMENT/FUND ACCOUNTANT)
--- NOTE | 2020-09-30 12:12 | DSE_ITS ---
Date of service: 09/30/20 Time of Service: 12:13 DS: Diagnosis Discharge Diagnosis (1) Altered mental status associated with intoxication: Status: Acute (2) Spondylosis of lumbar region without myelopathy or radiculopathy: Status: Chronic (3) Anxiety disorder: Status: Chronic (4) Chronic pain: Status: Chronic (5) HTN (hypertension): Status: Chronic Discharge Plan Disposition Patient Disposition: HOME Condition: Improving Discharge Details Reason For Visit: ALTERED MENTAL STATUS Admit Date/Time: 09/29/20 05:47 Admit Provider: Giovanni Eid Attending Provider: Giovanni Eid Primary Care Provider: Mayra Bedoya [facility] Course Hospital Course: Venita is a pleasant 54 year old female who recently underwent lumbar spine surgery at by Dr. Dhaliwal. She was hospitalized from 09/16/20- 09/26/20. She also has a history of R foot drop, chronic pain, HTN and anxiety. She presented to the [facility] ED early yesterday morning via ambulance with altered mental status and being found with multiple empty pill bottles and various pills on the floor around her. She was given Narcan 0.4 mg and became more alert. She was admitted to the Med/surg floor for observation and further investigation of her intent with taking the pills. She was seen on Med/surg later yesterday morning, she was still drowsy but was able to converse and engage in conv ersation. She denied any suicidal intent or thoughts of self harm. Her sedating medications were held until she was more awake. PT was consulted. This morning, Venita is fully awake and alert. She was questioned once again about her intent with taking the pills at home. She again states that she is not suicidal. She spoke to her sister on the phone who verified that she still has oxycodone at home, which was a concern of the responding ambulance crew. She continues to have back pain. She worked with PT but she does not have her knee immobilizer or AFO brace with her. She is insistent on going home, we discussed the possiblity of Rehab at a [facility] facility but she refused. PT recommends ongoing PT, Venita is connected with her local VNA for PT and nursing services. This will need to be resumed upon discharge from the hospital. Venita is discharged home today with resumption of home health services. She has follow up scheduled with her PCP for 10/01/20, she will keep this appointment. She was scheduled to have her second COVID vaccine today at home, she is concerned about missing it. Care Management is assisting with making sure she will still get her vaccine, she is assured that she can get it anytime after today. Her medication list was updated per a list that she provided. She is advised to resume taking her medications as previously prescribed. Follow up with PCP and [facility] as scheduled. Home Meds and New Rx's Prescriptions: New docusate sodium [Colace] 100 mg Capsule 100 mg PO TID PRN PRNQty: 0 RF: 0 Continued Narcan 4 MG spray,non-aerosol 4 mg NS ONCE Qty: 1 RF: 0 carisoprodol 350 mg tablet 350 mg PO TID PRNRF: 0 prednisone 5 mg tablet 15 mg PO DAILY RF: 0 gabapentin 800 mg tablet 800 mg PO TID RF: 0 alprazolam 0.5 mg tablet 0.5 mg PO TID RF: 0 pantoprazole 40 mg tablet,delayed release (DR/EC) 40 mg PO DAILY RF: 0 propranolol 20 mg tablet 20 mg PO TID PRNRF: 0 ropinirole 1 mg tablet 1 mg PO TID RF: 0 acetaminophen 500 mg Tablet 1,000 mg PO Q6H PRNRF: 0 pyridoxine (vitamin B6) 100 mg tablet 100 mg PO QHS RF: 0 oxycodone 5 mg tablet 5 mg PO Q6H PRNRF: 0 quetiapine 200 mg tablet 200 mg PO HS RF: 0 quetiapine 25 mg tablet 25 mg PO HS RF: 0 amlodipine 5 mg Tablet 5 mg PO DAILY AM RF: 0 fluoxetine 40 mg Capsule 40 mg PO DAILY AM RF: 0 Discontinued hydrochlorothiazide 25 mg tablet 25 mg PO DAILY RF: 0 amitriptyline 100 mg tablet 100 mg PO QHS RF: 0 furosemide 20 mg tablet 20 mg PO QAM PRNRF: 0 lamotrigine 100 mg Tablet 100 mg PO QHS RF: 0 losartan 100 mg Tablet 100 mg PO DAILY AM RF: 0 melatonin 10 mg Tablet 10 mg PO HS RF: 0 Discharge Instructions Instructions: Acute Low Back Pain (ED) Additional Instructions: Home health services will be resumed. Take your medications as previously prescribed. Follow up with your PCP and Dr. Dhaliwal as scheduled. Stand Alone Forms: Nursing Discharge Form Referrals: Mayra Bedoya [Primary Care Provider] - (they will call you with an appt) Activity:: Activity as Tolerated Equipment/Supplies:: No Equipment Needed Diet:: As Tolerated Discharge Orders Discharge Orders: Discharge Order (Routine); Ordered 09/30/20 Ordered By: Felecia Vasquez DS: Summary Time Spent with Patient providing and/or coordinating discharge services: Greater than 30 minutes Status at Discharge Functional status at discharge: uses cane/walker Overall status at discharge: patient is progressing back to baseline Mental Status: mental status grossly normal Speech and Movement: speech and movement normal (at baseline s/p lumbar spine surgery) Mood: congruent mood Affect: normal affect Exam Narrative Exam Narrative: General: well nourished female, awake and alert, sitting up in the recliner today, able to answer questions appropriately and engage in conversation. HEENT: normocephalic, atraumatic, PERRL, mucous membranes moist, poor dentition. Neck: supple, no JVD. Cardiovascular: heart has regular rate, nontachycardic, no murmur apprecaited. Respiratory: respirations appear even and unlabored, lung sounds are clear throughout. GI: large round abdomen, +BS, soft, nontender on palpation, nondistended. Extremities: Drop foot on right, +pedal pulses bilaterally, moves all 4 extremities freely. Back: lower back with healing incision, no erythema or drainage. Psych Mental Status: mental status grossly normal Speech and Movement: speech and movement normal (at baseline s/p lumbar spine surgery) Mood: congruent mood Affect: normal affect DS: Data Vitals/I&O Vitals and I&O: Vital Signs Temperature 36.7 C 09/30/20 11:44 Temperature Source Temporal Artery Scan 09/30/20 11:44 Pulse 74 09/30/20 11:44 Pulse Rhythm Regular 09/30/20 07:40 Pulse 83 09/29/20 05:20 Respiratory Rate 18 09/30/20 11:44 Respiratory Effort Non-Labored 09/30/20 07:40 Respiratory Depth Normal 09/30/20 07:40 Respiratory Pattern Normal 09/30/20 07:40 Blood Pressure 134/83 09/30/20 11:44 Blood Pressure Mean 92 09/29/20 05:15 Pulse Oximetry 96 09/30/20 11:44 Oxygen Delivery Method Room Air 09/30/20 11:44 Oxygen Flow Rate 0 09/30/20 11:44 Pain Level 5 09/30/20 11:44 Intake & Output 09/29/20 09/30/20 09/30/20 23:59 11:59 23:59 Intake Total 2430 / 2430 1417.5 / 1417.5 Output Total 2300 / 2750 Balance 130 / -320 1417.5 / 1417.5 Weight 148.9 kg Intake: IV 1999 / 1999 937.5 / 937.5 Oral 430 / 430 480 / 480 Output: Urine 2300 / 2750 Other: Urine Color Pale Yellow Urine Appearance Cloudy Cloudy Urine Odor Normal Comment Voided in commode x1 Voiding Methods Toilet Bedside Commode Data Completed and Pending Completed studies during hospitalization [Text1]: 09/29/20: CXR: FINDINGS: MEDIASTINUM: Normal. HEART: Mild cardiomegaly. PULMONARY VASCULATURE: Normal. LUNGS: No focal consolidating infiltrates. PLEURAL SPACE: No pleural effusion or pneumothorax. BONE:Within normal limits for the patient's age. Postsurgical changes in the cervical spine. OTHER FINDINGS:Normal. IMPRESSION: No acute pulmonary findings. CT head: IMPRESSION: No acute intracranial process. Labs on day of discharge: Labs from last 24 hours 09/30/20 09/30/20 09/29/20 06:01 06:01 12:32 WBC 8.60 D RBC 3.49 L Hgb 9.3 L Hct 30.6 L MCV 87.7 MCH 26.6 L MCHC 30.4 L RDW 15.3 H Plt Count 503 H MPV 8.7 Immature Gran % 0.6 Neutrophils % 49.0 Lymphocytes % 42.9 Monocytes % 5.8 Eosinophils % 1.5 Basophils % 0.2 Nucleated RBC % 0 Absolute Neutrophils 4.21 Absolute Lymphocytes 3.69 H Absolute Monocytes 0.50 Absolute Eosinophils 0.13 Absolute Basophils 0.02 Sodium 149 H 146 H Potassium 4.0 4.0 D Chloride 111 H 107 Carbon Dioxide 28.8 28.4 Anion Gap 9.2 10.6 BUN 14 14 Creatinine 0.8 0.9 Estimated GFR/1.73 m2 >= 60.00 >= 60.00 Glucose 88 115 H Calcium 8.7 8.6 Total Bilirubin 0.2 AST 15 ALT 29 Alkaline Phosphatase 108 Total Protein 6.8 Albumin 2.9 L SARS-CoV-2 (PCR) 09/29/20 06:10 WBC RBC Hgb Hct MCV MCH MCHC RDW Plt Count MPV Immature Gran % Neutrophils % Lymphocytes % Monocytes % Eosinophils % Basophils % Nucleated RBC % Absolute Neutrophils Absolute Lymphocytes Absolute Monocytes Absolute Eosinophils Absolute Basophils Sodium Potassium Chloride Carbon Dioxide Anion Gap BUN Creatinine Estimated GFR/1.73 m2 Glucose Calcium Total Bilirubin AST ALT Alkaline Phosphatase Total Protein Albumin SARS-CoV-2 (PCR) Negative PFSH Medical History Anxiety disorder Arthritis Cervical pain Chronic pain Depression Foot drop HTN (hypertension) Kidney stones Lumbosacral pain Migraines Panic attacks Tobacco use Vitamin D deficiency Surgical History ANTERIOR LUMBAR INTERBODY FUSION (~1998) Cervical Procedure (~1998) HX CERVICAL CA HEMILAMINECTOMY LUMBAR SURGERY (~1998) MICRODISCECTOMY (~1996) Oophrectomy, Right Social History Smoking/Tobacco Use Status: Current every day Tobacco Type: cigarettes Smoking risk assessment performed?: Yes Alcohol Intake: never Drug use: Rarely Substance use type: marijuana Do you feel safe at home: Yes Do you feel safe in your relationship?: Yes
--- NOTE | 2020-10-03 08:21 | PT.INDS ---
Date of service: 10/03/20 Time of Service: 08:22 PT Notes Visit Reasons: ALTERED MENTAL STATUS Physical Therapy Inpatient Discharge Summary Date: 10/03/2020 Dates of service: 10/03/2020 only This is a clinical summary of care provided on the duration of dates listed above. No charge was made in the completion of this documentation. Referring Doctor: Felecia Vasquez NP PT Orders: PT CONSULT: History recent back surgery Precautions: Fall. Standard. On back precautions. WB precaution for right LE needs to be clarified. Use of R knee immobilizer and R AFO when out of bed needs to be clarified as well. Patient Profile/Admitting Diagnosis: Venita is a 54-year-old female who presented to the ED on 09/29/2020 with altered mental status. 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 PMHX: Medical History Anxiety disorder Arthritis Cervical pain Chronic pain Depression Foot drop HTN (hypertension) Kidney stones Lumbosacral pain Migraines Panic attacks Tobacco use Vitamin D deficiency Surgical History ANTERIOR LUMBAR INTERBODY FUSION (~1998) Cervical Procedure (~1998) HX CERVICAL CA HEMILAMINECTOMY LUMBAR SURGERY (~1998) MICRODISCECTOMY (~1996) Oophrectomy, Right Social History/Home Situation: Moved to [place] 3 to 4 years ago since and came to [place] to live with older sister. Equipment Owned/DME: Front wheeled walker, single-point cane, knee immobilizer, AFO Subjective: NT. See most recent [employer] notes. Objective: General Observation: NT. See most recent [employer] notes. Mental Status: NT. See most recent [employer] notes. Pain: NT. See most recent [employer] notes. ROM: Right Upper Extremity: Shoulder Flexion WFL. Shoulder abduction WFL. Shoulder ER/IR WFL. Elbow flexion WFL. Forearm pronation/supination WFL. Wrist flexion WFL. Opening and closing of hand WFL. Left Upper Extremity: Shoulder Flexion WFL. Shoulder abduction WFL. Shoulder ER/IR WFL. Elbow flexion WFL. Forearm pronation/supination WFL. Wrist flexion WFL. Opening and closing of hand WFL. Right Lower Extremity: Hip flexion about 100 degrees. Hip abduction WFL. Hip ER/IR WFL. Knee flexion WFL. Knee extension -20 degrees. Ankle dorsiflexion/eversion absent. Ankle plantarflexion/inversion -10 degrees to 30 degrees. Left Lower Extremity: Hip flexion WFL. Hip abduction WFL. Hip ER/IR WFL. Knee flexion WFL. Knee extension. Ankle dorsiflexion WFL. Ankle plantarflexion WFL. Strength: Right Upper Extremity: Shoulder flexors 5/5. Shoulder abductors 5/5. Shoulder ER 5/5/ Shoulder IR 5/5. Forearm pronators 5/5. Forearm supinators 5/5. Elbow flexors 5/5. Elbow extensors 5/5. Hog Raiser strong. Left Upper Extremity: Shoulder flexors 5/5. Shoulder abductors 5/5. Shoulder ER 5/5/ Shoulder IR 5/5. Forearm pronators 5/5. Forearm supinators 5/5. Elbow flexors 5/5. Elbow extensors 5/5. Hog Raiser strong. Right Lower Extremity: Hip flexors 3-/5. Hip abductors 4-/5. Hip external rotators 4-/5. HIp internal rotators 4-/5. Knee flexors 3-/5. Knee extensors 3-/5. Ankle dorsiflexors/evertors 1/5. Ankle plantarflexors/invertors 3-/5. Left Lower Extremity: Hip flexors 4/5. Hip abductors 4/5. Hip external rotators 4/5. HIp internal rotators 4/5. Knee flexors 4/5. Knee extensors 4/5. Ankle dorsiflexors/evertors 4/5. Ankle plantarflexors/invertors 4/5. Bed Mobility/Transfers: Rolling supervision Supine to sit supervision Sit to stand standby assist Stand to sit contact-guard assist Bed to bedside commode contact-guard assist Bedside commode to bed contact-guard assist Bed to chair contact-guard assist Gait: Distance of 15 feet +5 feet requiring contact-guard assist. Emili decreased. Step height on right decreased. Step length decreased on right. Absent dorsiflexion on right LE due to pre-existing foot drop. Patient indicated after ambulation activity that she was told by the doctor to not put weight on the R LE due to presence of fracture in her leg. She verbalized that said restriction should continue to apply as of today. She feels that this may be why she hurt too much when she covered this short distance. Balance: Static Sitting: Normal Dynamic Sitting: Normal Static Standing: Fair Dynamic Standing: Fair Assessment: Madison continues to demonstrate functional mobility decline requiring the use of a front wheeled walker as well and has the assistance of another caregiver for all mobility ADL performance. Clarifications regarding her weight bearing status as well as orders for the use of knee immobilizer and AFO need to be done in order to ensure fall risk reduction at discharge destination. Patient fell after her most recent back surgery and has had 7 falls in the past year which may require SNF placement at this time. Patient continues to present with clinical signs and symptoms consistent with current/admitting diagnoses that have resulted to mobility limitations, gait instability, generalized weakness, and impairment of motor control as demonstrated by the following impairment level findings: 1. Decreased strength to right LE major muscle groups 2. Impaired sitting/standing balance 3. Impaired activity tolerance 4. Limitation of joint range of motion in back, and right LE Impairments are continuing to contribute to the following functional limitations: 1. Increased dependence with transfers 2. Inability to safely ambulate without assistive device and physical assistance 3. Increase completion time for mobility ADL performance 4. Increased fall risk 5. Inability to negotiate steps alone safely 6. Inability to return to prior living environment at this time Goals: Goals X1 week 1. Supine-Sit independent NOT MET 2. Sit-Supine independent NOT MET 3. Sit-Stand independent NOT MET 4. Stand-Sit independent NOT MET 5. Bed-Chair independent NOT MET 6. Chair-Bed independent NOT MET 7. Independent gait on level surface with use of front wheeled walker for at least 50 feet without report of pain nor dyspnea using right knee immobilizer and right AFO NOT MET 8. Independent stair negotiation while holding onto B rails for at least 5 steps without report of pain nor dyspnea NOT MET 9. Independent with home exercise program NOT MET 10. Good static and dynamic standing balance/tolerance NOT MET DISCHARGE RECOMMENDATIONS: Patient will benefit from custodial facility placement for continued skilled physical therapy services in order to progress mobility level, strength, and balance. Clarification regarding weightbearing precaution, use of knee immobilizer, and AFO on the left LE will need to be sought in order to maximize mobility ADL performance discharge destination TREATMENT CODE/TIME: NC Thank you for the opportunity to participate in the care of this patient. Orly Schaefer PT, DPT, CLT [facility] [place], [place]
== END 2020-09-30 13:42 | disposition home or self-care (01) ==
LOC: ER 06:15 → MS 06:41
PROVIDERS: Admitting Provider Family Medicine; Emergency Provider Emergency Medicine; PCP Family Medicine; Visit Provider Family Medicine
DX: T40.2X1A Poisoning by other opioids, accidental (unintentional), initial encounter (principal); R40.0 Somnolence; F11.929 Opioid use, unspecified with intoxication, unspecified; E66.9 Obesity, unspecified; Z68.42 Body mass index [BMI] 45.0-49.9, adult; M51.36 Other intervertebral disc degeneration, lumbar region; M47.816 Spondylosis without myelopathy or radiculopathy, lumbar region; G89.4 Chronic pain syndrome; I10 Essential (primary) hypertension; M54.2 Cervicalgia; M21.379 Foot drop, unspecified foot; N20.0 Calculus of kidney; G43.909 Migraine, unspecified, not intractable, without status migrainosus; F41.0 Panic disorder [episodic paroxysmal anxiety]; F17.210 Nicotine dependence, cigarettes, uncomplicated; E55.9 Vitamin D deficiency, unspecified; Z20.822 Contact with and (suspected) exposure to COVID-19
CPT/HCPCS: 36415; 51702; 80048; 80053; 80076; 80307; 85027; 87635; 93005; 96361; 96374; 97162; 97530; 99285; 70450; 71045; 80320; 80329; 81003; 83735; 84443; 85025; 93010; 99217; 99220; G0378; J1644; J2310; J7512

== ENCOUNTER 2021-01-13 01:56 | Outpatient (CLI) | payer MEDICARE, MEDICAID, SELFPAY ==
--- NOTE | 2021-01-13 15:45 | DI.MRI_ITS ---
Exam(s) MR LUMBAR SPINE WO EXAM: MR LUMBAR SPINE WO CLINICAL HISTORY: CONTINUED POST OP URINARY INCONTINENCE,S/P LUMBAR FUSION,Z98.1,R32,SPONDYLO. TECHNIQUE: Multiplanar multisequence MRI of the Lumbar spine was performed. COMPARISON: MR MRI - LUMBAR SPINE W/WO CONT from 11/12/[address] LUMBAR SPINE WO from 07/19/[address] LUMBAR SPINE WO from 07/19/2020 FINDINGS: Compared to the prior MRI scan September 2018 there has been repeat surgery. There is now fusion hardware evident at 4 levels including L3, L4, L5, and S1 levels. On the September 2018 study there or or was fusio n hardware at L5-S1 level only. Presently there are posterior fusion rods and bilateral intra pedicu lar screws at L3, L4, L5, and S1 levels. The relationship of the intra pedicular screws relative the superior endplates satisfactory. However, there is stir bright signal evident in the L3 vertebral b anabelle, not evident on the prior study. Also some signal abnormality at the level of the endplates L3-4 level. No discitis signal. No obvious abnormal epidural collection or paraspinal collection. Conus medullaris is at normal level. There is no evidence of conus mass nor subjacent clumping of in trathecal nerve roots to suggest arachnoiditis. The distal thecal sac appears unremarkable.There is no evidence of Tarlov intrasacral cysts nor other significant findings within the sacral canal Bones:As above. With respect to the individual levels... T12-L1: Unremarkable L1-2: Normal disc height and signal. No disc herniation nor central canal stenosis.No foraminal steno sis L2-3: Normal disc height. No disc herniation nor central canal stenosis.No foraminal stenosis.No face t arthropathy. Bilateral intrapedicular screws. L3-4: Intrapedicular screws. There is a central and posterolateral left disc protrusion which extend s posteriorly 7 millimeters and is approximately 1.5 cm wide and compresses the thecal sac. Results in mild-moderate central spinal canal stenosis at this level. No foraminal stenosis on the right sedrick e. Significant foraminal stenosis on the left side.Mild facet arthropathy. Posterior fusion rods. L4-5: Chronic decreased disc height and signal, unchanged from September 2018. Anterior osteophytes. Bila teral intrapedicular screws. Symmetrical annular bulging without a dominant disc herniation. Panda ctomy track on the right side noted. Central canal dimensions are lower normal. Minimal if any sign ificant foraminal stenosis on the right side at this level. There is an element of foraminal stenosi s on the left side at this level. L5-S1: There is fusion across this space. Bilateral intrapedicular screws. No disc herniation or ce ntral canal stenosis at this level. Also no foraminal stenosis at this level. This level exhibits a n element of fusion between L5 and S1 vertebral bodies. Soft tissues: Posterior subcutaneous signal abnormality is consistent with postsurgical change. No organized fluid collection at this level. IMPRESSION: 1. Compared to the prior MRI scan of September 2018 there has been interval additional surgery and there is now fusion hardware extending from L3-4-5-S1. 2. There is a central-posterolateral left disc protrusion at L3-4 level which show some is more promi nent than on the prior study. There is a possibly that this may represent postsurgical scarring. Th is was a noninfused study. Nevertheless, does have the appearance of probable disc herniation and th is results in mild-moderate central canal stenosis at this level. Is also element of left-sided fora antwon stenosis at this level. 3. Other findings as described above. There is increased signal seen in the L3 vertebral body as wel l as in the superior aspect of L4 vertebral body seen on the STIR images, possibly significant. Meredith elation with clinical findings recommended. It might be prudent to perform a contrast infused study here. DATA REPOSITORY:
== END 2021-01-13 02:16 ==
PROVIDERS: PCP Family Medicine; Visit Provider Neurological Surgery
DX: M51.26 Other intervertebral disc displacement, lumbar region (principal); M43.16 Spondylolisthesis, lumbar region; M48.061 Spinal stenosis, lumbar region without neurogenic claudication; R32 Unspecified urinary incontinence; Z98.1 Arthrodesis status
CPT/HCPCS: 72148